=== PATIENT | female | born 1935 | race Caucasian/White ===

== ENCOUNTER 2019-08-09 20:20 | Emergency (ER) | payer MEDICARE, BC ==
--- NOTE | 2019-08-09 20:31 | EDM.PDOC ---
ED HPI GENERAL MEDICAL PROBLEM - General Chief Complaint: Chest Pain Stated Complaint: SOB/CHEST PAIN Time Seen by Provider: 08/09/19 20:30 Source of Information: Reports: Patient History Limitations: Reports: No Limitations - History of Present Illness INITIAL COMMENTS - FREE TEXT/NARRATIVE: 83-year-old female with known Parkinson's disease for the last 3 years states that she got tripped up and fell at home on Tuesday, August 05. She states she landed with her hands or fists on top of her chest on the ground. She managed not to hurt her face or neck. She states over the last 3 days the pain in her chest is gradually intensified particularly along the right sternal border along ribs 5678 and 9. Every breath is painful. She has no pain in her back. She skinned up her left hand on the palmar aspect as well as both knees she had no recent changes in medications. No change in cognitive function. Denies cough or sputum production. Denies hemoptysis. Onset: Sudden Onset Date: 08/04/19 Duration: Day(s):, Constant, Getting Worse Location: Reports: Chest (Right anterior chest wall pain and sternal pain.) Quality: Reports: Ache, Sharp, Stabbing Severity: Moderate (Neuritic component to the pain of another 10 at times) Improves with: Reports: Rest Worsens with: Reports: Movement Context: Reports: Trauma (Fall onto her anterior chest.). Denies: Activity, Exercise (Deep breathing movement lying on her side makes the pain worse.), Lifting, Sick Contact Associated Symptoms: Reports: Other Treatments MANAGER [employer] SERVICES: Reports: Other (see below) (None.) Chest Pain Score (Numeric/FACES): 8 - Related Data Allergies Allergy/AdvReac Type Severity Reaction Status Date / Time No Known Allergies Allergy Verified 10/06/15 04:12 Home Meds: Home Meds Carbidopa/Levodopa [Carbidopa-Levodopa 25-100] 25 - 100 mg PO TID 08/09/19 [ History] Escitalopram [Lexapro] 5 mg PO DAILY 08/09/19 [History] Past Medical History HEENT History: Reports: Hard of Hearing Other HEENT History: wears hearing aids Cardiovascular History: Reports: High Cholesterol Gastrointestinal History: Reports: Chronic Constipation, Diverticulosis Other JAVA DEVELOPER History: partial hysterectomy Musculoskeletal History: Reports: Osteoarthritis Neurological History: Reports: Parkinson's (Diagnosed about 3 years ago.) Dermatologic History: Reports: Psoriasis - Past Surgical History HEENT Surgical History: Reports: Cataract Surgery Musculoskeletal Surgical History: Reports: Hip Replacement, Knee Replacement Social & Family History - Family History HEENT: Reports: Cataract Other HEENT Family History: mother and father Cardiac: Reports: [place] Other Cardiac Family History: father Other Respiratory Family Hisory: father-emphysema GI: Reports: Other (See Below) Other GI Family History: gallbladder: mother and father Musculoskeletal: Reports: Arthritis Other Musculoskeletal Family History: whole family Psychiatric: Reports: Depression Other Psychiatric Family History: sister Endocrine/Metabolic: Reports: Diabetes, type II Other Endocrine/Metabolic Family History: mother Oncologic: Reports: Colon, Pancreatic Other Oncologic Family History: sister-colon. mother-pancreatic - Living Situation & Occupation Living situation: Reports: , with Spouse Occupation: Retired ED ROS GENERAL - Review of Systems Review Of Systems: See Below Constitutional: Reports: Malaise, Fatigue (Likely.). Denies: Fever, Chills HEENT: Reports: Glasses Respiratory: Reports: Shortness of Breath, Pleuritic Chest Pain, Other (Chest trauma). Denies: Wheezing, Cough, Sputum Cardiovascular: Reports: Chest Pain (Right parasternal chest pain along ribs 07/24). Denies: Blood Pressure Problem, Claudication, Dyspnea on Exertion, Edema, Lightheadedness, Orthopnea Endocrine: Reports: Fatigue (Chronically.) GI/Abdominal: Reports: Constipation : Reports: Frequency (And stress components), Incontinence Musculoskeletal: Reports: Neck Pain, Shoulder Pain, Joint Pain (Both knees have been replaced. Has pain in her hips occasional low back pain and neck pain) Skin: Reports: Other (Mild bruising contusions to the right lateral knee palmar aspect of her left hand over the thenar eminence.) Neurological: Reports: Tremors, Difficulty Walking (Kinesia), Other Psychiatric: Reports: No Symptoms. Denies: Hallucinations ED EXAM, GENERAL - Physical Exam Exam: See Below Exam Limited By: No Limitations General Appearance: Alert, WD/WN, Mild Distress, Other (Temperature is 36.4 heart rate was 89 respiratory is 20 BP one 737/65 O2 sats were 96 to 97% on room air.) Eye Exam: Bilateral Eye: Normal Inspection, Periorbital Changes Throat/Mouth: Normal Inspection, Normal Lips, Normal Teeth, Normal Oropharynx Head: Atraumatic, Normocephalic, Other (No evidence of head or facial injuries.) Neck: Limited Range of Motion, Tender Lateral. No: Full Range of Motion, Lymphadenopathy (L), Lymphadenopathy (R), Tender Midline Respiratory/Chest: No Respiratory Distress, Lungs Clear, Normal Breath Sounds, Other (Chest is very tender along the right parasternal area particular ribs 5678 and 9. She feels like there is a lump in her right upper breast but I could not palpate a hematoma or mass. It appears that the underlying rib is causing pain in this area.) Cardiovascular: Normal Peripheral Pulses, Regular Rate, Rhythm, No Edema, No Gallop, No Murmur, No Rub Peripheral Pulses: 2+: Posterior Tibial (L), Posterior Tibial (R), Dorsalis Pedis (L), Dorsalis Pedis (R) GI/Abdominal: Normal Bowel Sounds, Soft, Non-Tender, No Organomegaly, No Abnormal Bruit, No Mass, Pelvis Stable, Other (Previous surgical scars) Extremities: Other (No pain on palpation of the thoracic and lumbar spine. She has very mild) Neurological: Alert, Oriented ( kyphosis of the thoracic spine.), CN II-XII Intact, Normal Cognition, Other (Does exhibit bradykinesia. Mild masked facies. Very little tremor. No cogwheel rigidity identified in upper extremities). No: Normal Gait Psychiatric: Normal Affect, Normal Mood Skin Exam: Warm, Other (Abrasions to the lateral aspect of the right knee and the palmar aspect of her left hand.) Course - Vital Signs Last Recorded V/S: Last Vital Signs Temp 36.4 C 08/09/19 20:33 Pulse 89 08/09/19 20:33 Resp 20 08/09/19 20:33 BP 137/65 08/09/19 20:33 Pulse Ox 96 08/09/19 20:33 - Radiology Interpretation Free Text/Narrative:: 83-year-old female presents to the ED after falling at home 5 days ago landing hard on her chest. She states she managed to get her hands up onto her chest to protect her from the fall. She denies hitting her face head or neck. She states since the injury she has developed increasing right-sided parasternal chest pain with a strong pleuritic component. It is worsened with every breath or cough. Limited mobility due to pain unable to sleep other than flat on her back. As for fractured ribs. Plan she will have CT of the chest without contrast. - Re-Assessments/Exams Free Text/Narrative Re-Assessment/Exam: 08/09/19 21:45: CT chest done without contrast. Small portion of the visualized upper abdominal structures show no abnormalities. No pericardial thickening is identified. Mild to moderate coronary artery calcification is appreciated. Atherosclerotic calcification is noted within the aorta and within the branch vessels. No aneurysm is seen. Mediastinum shows no adenopathy. No hilar abnormalities are identified lungs are clear with no acute parenchymal changes. No pleural effusions are seen no pneumothorax is identified. Bone window settings were reviewed which shows degenerative change within both glenohumeral joints. Scattered degenerative changes noted throughout the entire thoracic spine with bamboo spine changes. No acute osseous findings appreciated suggest a rib fracture or sternal fracture. I discussed the findings with the patient. Advised that she is likely through the worst of it. She is contused her chest wall but no broken bones were identified. He is likely going to have pain for about 10 more days before she is back to normal. She will use Tylenol or Motrin as needed for pain relief. Departure - Departure Time of Disposition: 21:34 Disposition: Home, Self-Care 01 Reason for Transfer *Q: Other Condition: Fair Clinical Impression: Contusion of chest wall with intact skin Instructions: Contusion, [id number] Referrals: Digna Lindsey BOX CUTTER [Primary Care Provider] - Forms: ED Department Discharge Additional Instructions: Evaluation in the emergency room today in regards to injuries to the right anterior chest and sternum as a result of a fall 5 days ago. You believe you got your hands up in front of you to protect your chest from the fall and managed to prevent injuries to your neck head and face. Over the last 4 to 5 days however the pain is gradually increased in the right anterior chest wall and along the sternum. Particular ribs 5,6,7 and 8 are very tender to touch under the breast. CT of the chest was therefore carried out as the bones are very thin at your age and they did not reveal any fractured bones or injury to the sternum itself. You have extensive arthritic change throughout your whole thoracic spine where it is growing together at multiple levels which we called bamboo spine. I would anticipate that today is probably the worst day for the chest wall pain and it should slowly start to ease up and get better over the next 7 days 10 days. Suggest Tylenol or Motrin as needed for chest pain. Sepsis Event Note - Focused Exam Vital Signs: Vital Signs Temp Pulse Resp BP Pulse Ox 08/09/19 20:33 36.4 C 89 20 137/65 96 Date Exam was Performed: 08/09/19 Time Exam was Performed: 21:58
[2019-08-09 20:34] VITALS: BP 137/65; PULSE 89
--- NOTE | 2019-08-09 21:42 | CT ---
CT chest Technique: Multiple axial sections were obtained from above the lung apices inferiorly through the lung bases. Intravenous contrast was not utilized. Comparison: Prior chest CT study of 05/01/14. Findings: Small portion of the visualized upper abdominal structures shows no acute finding. No pericardial thickening is seen. Mild to moderate coronary artery calcification is seen. Atherosclerotic calcification is noted within the aorta and within the branch vessels. No aneurysm is seen. Mediastinum shows no adenopathy. No hilar abnormalities are seen. No axillary adenopathy is seen. Lungs are clear with no acute parenchymal change. No pleural effusions are seen. No pneumothorax is identified. Bone window settings were reviewed which shows degenerative change within both glenohumeral joints. Scattered degenerative change is noted throughout the thoracic spine. No acute osseous finding is appreciated. Impression: 1. Findings as noted above. 2. Nothing acute is appreciated. Diagnostic code #2 This report was dictated in MDT
== END 2019-08-09 21:46 | disposition home or self-care (01) ==
LOC: JD.ED 20:20
DX: S20.211A Contusion of right front wall of thorax, initial encounter (principal); S80.211A Abrasion, right knee, initial encounter; S60.512A Abrasion of left hand, initial encounter; G20 Parkinson's disease; Z79.899 Other long term (current) drug therapy; W19.XXXA Unspecified fall, initial encounter; Y92.009 Unspecified place in unspecified non-institutional (private) residence as the place of occurrence of the external cause
CPT/HCPCS: 71250; 71250-26; 99283-25

== ENCOUNTER 2020-08-14 20:24 | Emergency (ER) | payer MEDICARE, BC ==
[2020-08-14 20:50] VITALS: BP 159/88; PULSE 96
--- NOTE | 2020-08-14 21:47 | EDM.PDOC ---
ED HPI GENERAL MEDICAL PROBLEM - General Chief Complaint: Abdominal Pain Stated Complaint: ABDOMINAL PAIN Time Seen by Provider: 08/14/20 21:41 - History of Present Illness INITIAL COMMENTS - FREE TEXT/NARRATIVE: 84-year-old female presents the emergency room with abdominal pain. This been going on for last couple of days. She has difficulty with bowel movements. She has difficulty with voiding does not hurt but she has a hard time getting things going. She has been having constipation problems for a while now. She has not had any fevers or chills she said no nausea or vomiting. Patient denies any history of heart or breathing problems however she does have Parkinson's. She has had Parkinson's for 5 years but possibly 2 years prior to this. Patient denies any other medical problems. Lower Abdominal Pain Score (Numeric/FACES): 0 - Related Data Allergies Allergy/AdvReac Type Severity Reaction Status Date / Time No Known Allergies Allergy Verified 08/14/20 20:50 Home Meds: Home Meds Carbidopa/Levodopa [Carbidopa-Levodopa 25-100] 25 - 100 mg PO TID 08/09/19 [History] Escitalopram [Lexapro] 5 mg PO DAILY 08/09/19 [History] ClonazePAM [KlonoPIN] 0.5 mg PO DAILY 08/14/20 [History] Past Medical History HEENT History: Reports: Hard of Hearing Other HEENT History: wears hearing aids Cardiovascular History: Reports: High Cholesterol Gastrointestinal History: Reports: Chronic Constipation, Diverticulosis 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 Musculoskeletal History: Reports: Osteoarthritis Neurological History: Reports: Parkinson's Dermatologic History: Reports: Psoriasis - Past Surgical History HEENT Surgical History: Reports: Cataract Surgery GI Surgical History: Reports: Appendectomy, Cholecystectomy, Other (See Below) Other GI Surgeries/Procedures: partial colon resection from diverticulitis Female Surgical History: Reports: Hysterectomy Musculoskeletal Surgical History: Reports: Hip Replacement, Knee Replacement Social & Family History - Family History HEENT: Reports: Cataract Other HEENT Family History: mother and father Cardiac: Reports: [place] Other Cardiac Family History: father Other Respiratory Family Hisory: father-emphysema GI: Reports: Other (See Below) Other GI Family History: gallbladder: mother and father Musculoskeletal: Reports: Arthritis Other Musculoskeletal Family History: whole family Psychiatric: Reports: Depression Other Psychiatric Family History: sister Endocrine/Metabolic: Reports: Diabetes, type II Other Endocrine/Metabolic Family History: mother Oncologic: Reports: Colon, Pancreatic Other Oncologic Family History: sister-colon. mother-pancreatic - Tobacco Use Tobacco Use Status *Q: Never Tobacco User - Caffeine Use Caffeine Use: Reports: Coffee - Recreational Drug Use Recreational Drug Use: No - Living Situation & Occupation Living situation: Reports: , with Spouse Occupation: Retired ED ROS GENERAL - Review of Systems Review Of Systems: See Below Constitutional: Reports: No Symptoms Respiratory: Reports: No Symptoms Cardiovascular: Reports: No Symptoms Endocrine: Reports: No Symptoms GI/Abdominal: Reports: Abdominal Pain, Constipation. Denies: Bloody Stool, Diarrhea, Nausea, Vomiting : Reports: Urgency. Denies: Discharge, Dysuria, Frequency, Pain Musculoskeletal: Reports: No Symptoms Skin: Reports: No Symptoms Psychiatric: Reports: No Symptoms ED EXAM, GENERAL - Physical Exam Exam: See Below Exam Limited By: No Limitations General Appearance: Alert, No Apparent Distress Head: Atraumatic, Normocephalic Neck: Normal Inspection, Supple, Non-Tender, Full Range of Motion Respiratory/Chest: No Respiratory Distress, Lungs Clear, Normal Breath Sounds Cardiovascular: Normal Peripheral Pulses, Regular Rate, Rhythm, No Edema GI/Abdominal: Normal Bowel Sounds, Soft, Other (She has lower abdominal discomfort no rigidity rebound or guarding noted) Back Exam: Normal Inspection. No: CVA Tenderness (L), CVA Tenderness (R) Extremities: Normal Inspection, No Pedal Edema Neurological: Alert, Oriented, Normal Cognition Course - Vital Signs Last Recorded V/S: Last Vital Signs Temp 36.7 C 08/14/20 20:43 Pulse 96 08/14/20 20:43 Resp 16 08/14/20 20:43 BP 159/88 H 08/14/20 20:43 Pulse Ox 94 L 08/14/20 20:43 - Orders/Labs/Meds Orders: Active Orders 24 hr Category Date Time Status CULTURE URINE [MREF] Stat Lab 08/14/20 22:40 Received Labs: Laboratory Tests 08/14/20 08/14/20 08/14/20 Range/Units 22:40 22:47 22:47 WBC 19.27 H (3.98-10.04) K/mm3 RBC 4.64 (3.98-5.22) M/mm3 Hgb 14.5 (11.2-15.7) gm/dl Hct 44.5 (34.1-44.9) % MCV 95.9 H (79.4-94.8) fl MCH 31.3 (25.6-32.2) pg MCHC 32.6 (32.2-35.5) g/dl RDW Std Deviation 47.7 H (36.4-46.3) fL Plt Count 372 H (182-369) K/mm3 MPV 8.9 L (9.4-12.3) fl Neut % (Auto) 81.9 H (34.0-71.1) % Lymph % (Auto) 9.4 L (19.3-51.7) % [place] % (Auto) 8.0 (4.7-12.5) % Eos % (Auto) 0.1 L (0.7-5.8) Baso % (Auto) 0.1 (0.1-1.2) % Neut # (Auto) 15.77 H (1.56-6.13) K/mm3 Lymph # (Auto) 1.82 (1.18-3.74) K/mm3 [place] # (Auto) 1.55 H (0.24-0.36) K/mm3 Eos # (Auto) 0.02 L (0.04-0.36) K/mm3 Baso # (Auto) 0.02 (0.01-0.08) K/mm3 Manual Slide Review Abnormal smear Sodium 138 (136-145) mEq/L Potassium 3.9 (3.5-5.1) mEq/L Chloride 102 (98-107) mEq/L Carbon Dioxide 24 (21-32) mEq/L Anion Gap 15.9 H (5-15) BUN 27 H (7-18) mg/dL Creatinine 0.9 (0.55-1.02) mg/dL Est Cr Clr Drug Dosing TNP Estimated GFR (MDRD) 60 (>60) mL/min BUN/Creatinine Ratio 30.0 H (14-18) Glucose 114 H (70-99) mg/dL Calcium 8.8 (8.5-10.1) mg/dL Total Bilirubin 0.6 (0.2-1.0) mg/dL AST 20 (15-37) U/L ALT 13 L (14-59) U/L Alkaline Phosphatase 60 (46-116) U/L Total Protein 6.9 (6.4-8.2) g/dl Albumin 3.2 L (3.4-5.0) g/dl Globulin 3.7 gm/dL Albumin/Globulin Ratio 0.9 L (1-2) Lipase 67 L (73-393) U/L Urine Color Yellow (Yellow) Urine Appearance Clear (Clear) Urine pH 5.5 (5.0-8.0) Ur Specific [place] > or = 1.030 (1.005-1.030) Urine Protein 1+ H (Negative) Urine Glucose (UA) Negative (Negative) Urine Ketones Negative (Negative) Urine Occult Blood 2+ H (Negative) Urine Nitrite Negative (Negative) Urine Bilirubin Negative (Negative) Urine Urobilinogen 0.2 (0.2-1.0) Ur Leukocyte Esterase Trace H (Negative) U Hyaline Cast (Auto) 5-10 H (0-5) /lpf Urine RBC 10-20 H (0-5) /hpf Urine WBC 20-30 H (0-5) /hpf Ur Squamous Epith Cells 5-10 H (0-5) /hpf Urine Bacteria Few (FEW) /hpf Urine Mucus Few (FEW) /hpf SARS-CoV-2 RNA (JONN) (NEGATIVE) 08/15/20 Range/Units 02:41 WBC (3.98-10.04) K/mm3 RBC (3.98-5.22) M/mm3 Hgb (11.2-15.7) gm/dl Hct (34.1-44.9) % MCV (79.4-94.8) fl MCH (25.6-32.2) pg MCHC (32.2-35.5) g/dl RDW Std Deviation (36.4-46.3) fL Plt Count (182-369) K/mm3 MPV (9.4-12.3) fl Neut % (Auto) (34.0-71.1) % Lymph % (Auto) (19.3-51.7) % [place] % (Auto) (4.7-12.5) % Eos % (Auto) (0.7-5.8) Baso % (Auto) (0.1-1.2) % Neut # (Auto) (1.56-6.13) K/mm3 Lymph # (Auto) (1.18-3.74) K/mm3 [place] # (Auto) (0.24-0.36) K/mm3 Eos # (Auto) (0.04-0.36) K/mm3 Baso # (Auto) (0.01-0.08) K/mm3 Manual Slide Review Sodium (136-145) mEq/L Potassium (3.5-5.1) mEq/L Chloride (98-107) mEq/L Carbon Dioxide (21-32) mEq/L Anion Gap (5-15) BUN (7-18) mg/dL Creatinine (0.55-1.02) mg/dL Est Cr Clr Drug Dosing Estimated GFR (MDRD) (>60) mL/min BUN/Creatinine Ratio (14-18) Glucose (70-99) mg/dL Calcium (8.5-10.1) mg/dL Total Bilirubin (0.2-1.0) mg/dL AST (15-37) U/L ALT (14-59) U/L Alkaline Phosphatase (46-116) U/L Total Protein (6.4-8.2) g/dl Albumin (3.4-5.0) g/dl Globulin gm/dL Albumin/Globulin Ratio (1-2) Lipase (73-393) U/L Urine Color (Yellow) Urine Appearance (Clear) Urine pH (5.0-8.0) Ur Specific [place] (1.005-1.030) Urine Protein (Negative) Urine Glucose (UA) (Negative) Urine Ketones (Negative) Urine Occult Blood (Negative) Urine Nitrite (Negative) Urine Bilirubin (Negative) Urine Urobilinogen (0.2-1.0) Ur Leukocyte Esterase (Negative) U Hyaline Cast (Auto) (0-5) /lpf Urine RBC (0-5) /hpf Urine WBC (0-5) /hpf Ur Squamous Epith Cells (0-5) /hpf Urine Bacteria (FEW) /hpf Urine Mucus (FEW) /hpf SARS-CoV-2 RNA (JONN) Negative (NEGATIVE) Meds: Medications Discontinued Medications Generic Name Dose Route Start Last Admin Trade Name Freq PRN Reason Stop Dose Admin Hydromorphone HCl 0.25 mg 08/14/20 21:55 08/14/20 22:06 Hydromorphone 0.5 Mg/0.5 Ml Syringe IVPUSH 08/14/20 21:56 0.25 mg ONETIME ONE Administration Hydromorphone HCl 0.25 mg 08/15/20 02:32 08/15/20 02:38 Hydromorphone 0.5 Mg/0.5 Ml Syringe IVPUSH 08/15/20 02:33 0.25 mg ONETIME ONE Administration Hydromorphone HCl 0.25 mg 08/15/20 06:25 08/15/20 06:30 Hydromorphone 0.5 Mg/0.5 Ml Syringe IVPUSH 08/15/20 06:26 0.25 mg ONETIME ONE Administration Lactated Ringer's 1,000 mls @ 75 mls/hr 08/14/20 22:00 08/15/20 02:28 Ringers, Lactated IV 125 mls/hr ASDIRECTED EDMUND Infusion Piperacillin Sod/Tazobactam 100 mls @ 200 mls/hr 08/15/20 01:36 08/15/20 01:51 Sod 4.5 gm/ Sodium Chloride IV 08/15/20 02:05 200 mls/hr ONETIME ONE Administration Lactated Ringer's 1,000 mls @ 125 mls/hr 08/15/20 02:00 Ringers, Lactated IV ASDIRECTED EDMUND - Re-Assessments/Exams Free Text/Narrative Re-Assessment/Exam: 08/15/20 19:19 Case was discussed with Dr. Wolff our general surgeon who recommended the patient be sent to [place]. The case was then discussed with Dr. Linda, general surgeon, at [facility] in [place], who recommends the patient be transferred admitted to the hospitalist service and referred to interventional radiology for drainage of this abscess. The case was then discussed with Dr. Somers, hospitalist at [facility] who kindly accepts the patient he accepted the patient at approximately 02:00 [place] time. Departure - Departure Time of Disposition: 02:00 Disposition: DC/Tfer to Acute Hospital 02 Clinical Impression: Intestinal diverticular abscess - Discharge Information Referrals: Digna Lindsey, REGISTERED NURSE AMBULATORY [Primary Care Provider] - Forms: ED Department Discharge Sepsis Event Note (ED) - Evaluation Sepsis Screening Result: No Definite Risk - My Orders Last 24 Hours: My Active Orders 08/14/20 22:40 CULTURE URINE [MREF] Stat - Assessment/Plan Last 24 Hours: My Active Orders 08/14/20 22:40 CULTURE URINE [MREF] Stat
[2020-08-14] MEDS ORDERED: HYDROmorphone 0.5 MG/0.5 ML Syringe IVPUSH ONE (21:55)
[2020-08-14] MEDS ORDERED: Lactated Ringers 1,000 ML IV SCH (22:00)
[2020-08-15] MEDS ORDERED: Piperacillin/Tazobactam 4.5 GM in Sodium Chloride 0.9% 100 ML IV ONE (01:36)
[2020-08-15] MEDS ORDERED: Lactated Ringers 1,000 ML IV SCH (02:00)
[2020-08-15] MEDS ORDERED: HYDROmorphone 0.5 MG/0.5 ML Syringe IVPUSH ONE ×2 (02:32→06:25)
--- NOTE | 2020-08-15 08:16 | CR ---
Abdomen: Supine and upright views of the abdomen. Comparison: Prior abdominal x-ray of 01/03/19. Collection of 3 nodules are seen within the left lower chest as well as within both sides of the abdomen. These are likely incidental and external. Surgical clips are seen from prior cholecystectomy. Right hip prosthesis is noted. Joint space narrowing is noted within the left hip. Scoliosis and degenerative change is noted within the spine. Bowel gas pattern is normal and no free air is seen. Impression: 1. Nothing acute is seen on 2 view abdominal x-ray. 2. Other stable findings as noted above. Diagnostic code #2
--- NOTE | 2020-08-15 08:27 | CT ---
CT abdomen and pelvis Technique: Multiple axial sections were obtained from above the dome of the diaphragm inferiorly through the pubic symphysis. Intravenous and oral contrast was utilized. Delayed images were also obtained through the abdomen and pelvis. Reconstructed coronal and sagittal images were also obtained. Comparison: Prior abdominal x-ray performed earlier on the same day (10:13 PM) and prior CT abdomen and pelvis study of 11/06/08. Findings: Visualized lung bases show mild areas of fibrosis. Nothing acute is appreciated. Heart is slightly enlarged. Liver shows a very small low density finding within the right lobe measuring about 2 mm. Small calcification is noted inferiorly within the periphery of the liver. Both of these findings are most likely benign. Surgical clips are seen from prior cholecystectomy. Spleen size is normal. Adrenal glands show no nodule. No abnormality is appreciated within the visualized pancreas. Kidneys show symmetric contrast enhancement. Very minimal low-density lesion is noted within the right kidney measuring 5 mm which is nonspecific by Hounsfield unit measurements but most likely represents a small cyst. Delayed images show contrast within both ureters and within the bladder. Abdominal aorta shows diffuse atherosclerotic change which continues into the iliac vessels. No aneurysm is seen. No retroperitoneal adenopathy or mesenteric abnormalities are seen. Diffuse diverticuli are seen throughout the colon. There is evidence of prior surgery at the sigmoid region. Air cavity is seen next to the area of surgery measuring about 4.1 cm in size. Minimal inflammatory change is seen and difficult to exclude slight diverticulitis with small perforation causing the air cavity. Artifact is noted within the right hip from prior prosthesis. Bone window settings show diffuse degenerative change throughout the spine including disc space narrowing and vacuum phenomena as well as diffuse degenerative apophyseal change. Degenerative change is also noted within the left hip and within the sacroiliac joints. Scoliosis is also noted. Impression: 1. Findings suspicious for minimal diverticulitis located next to an area of surgery within the sigmoid colon with minimal inflammatory change and 4.1 cm air cavity. 2. Diffuse diverticuli throughout the colon. 3. Other findings as noted above which I feel are most likely incidental. Diagnostic code #3 I agree with preliminary report from [facility] finalized on 08/15/20, 2:04 AM CDT, code 1
== END 2020-08-15 06:40 ==
LOC: JD.ED 20:24
DX: K57.20 Diverticulitis of large intestine with perforation and abscess without bleeding (principal); Z20.822 Contact with and (suspected) exposure to COVID-19
CPT/HCPCS: 36415; 74019; 74177; 80053; 81001; 83690; 85025; 87086; 96365; 96375; 96376; 99285; J1170; J2543; J7120; U0002; 99284

== ENCOUNTER 2020-09-01 14:11 | Emergency (ER) | payer MEDICARE, BC ==
[2020-09-01] MEDS ORDERED: HYDROmorphone 0.5 MG/0.5 ML Syringe IVPUSH ONE ×2 (15:04→17:18)
[2020-09-01] MEDS ORDERED: Sodium Chloride 0.9% 1,000 ML IV STA (15:04)
[2020-09-01] MEDS ORDERED: Ondansetron 4 MG/2 ML SDV IVPUSH ONE (15:04)
[2020-09-01] MEDS ORDERED: Sodium Chloride 0.9% 10 ML Syringe FLUSH ONE (15:22)
[2020-09-01] MEDS ORDERED: Iopamidol 612 MG/ML 100 ML Bottle IVPUSH ONE (15:22)
--- NOTE | 2020-09-01 16:25 | EDM.PDOC ---
ED HPI GENERAL MEDICAL PROBLEM - General Chief Complaint: General Stated Complaint: [facility] Time Seen by Provider: 09/01/20 14:21 Source of Information: Reports: Patient, RN Notes Reviewed History Limitations: Reports: No Limitations - History of Present Illness INITIAL COMMENTS - FREE TEXT/NARRATIVE: Patient is an 85-year-old female presenting to the emergency department with complaints of restlessness, rectal pain, a brief episode of feeling her heart was racing, and increased frequency of urination.. She had a surgery for drainage of a abscess diverticuli on August 14. She had a CLAUDE drain placed at that time. Daughter reports that on Tuesday of this week, the sutures came out of the CLAUDE drain and it stopped draining fluid. Intend that she would irrigate it it would come out from around the tubing. They have been in contact with the interventional radiologist in [place] and they recommended that she come to [place] to be evaluated, however her daughter did not think that she would be able to make it there, therefore she called the ambulance. Patient has had no fever or chills. She is still currently taking Cipro that was prescribed to her on discharge from the hospital. She has 2 tabs left and has been taking it as prescribed. She is not taking anything for pain. Patient and daughter report that over the last 4 days, the pain has increased. She has had no fever, chills, nausea, vomiting, or diarrhea. Denies any chest pain or shortness of breath. She has a follow-up appointment scheduled tomorrow with Dr. Munoz as well as the interventional radiologist, however they are not sure of this doctor's name. Rectal Pain Score (Numeric/FACES): 8 - Related Data Allergies Allergy/AdvReac Type Severity Reaction Status Date / Time No Known Allergies Allergy Verified 08/14/20 20:50 Home Meds: Home Meds Carbidopa/Levodopa [Carbidopa-Levodopa 25-100] 25 - 100 mg PO TID 08/09/19 [History] Escitalopram [Lexapro] 5 mg PO DAILY 08/09/19 [History] ClonazePAM [KlonoPIN] 0.5 mg PO DAILY 08/14/20 [History] Ciprofloxacin HCl [Cipro] 500 mg PO BID 09/01/20 [History] Sennosides [Senokot] 1 tab PO ASDIRECTED PRN 09/01/20 [History] Past Medical History HEENT History: Reports: Hard of Hearing Other HEENT History: wears hearing aids Cardiovascular History: Reports: High Cholesterol Gastrointestinal History: Reports: Chronic Constipation, Diverticulosis Other SALVATIONIST History: partial hysterectomy Musculoskeletal History: Reports: Osteoarthritis Neurological History: Reports: Parkinson's Dermatologic History: Reports: Psoriasis - Infectious Disease History Infectious Disease History: Reports: Measles, Other (See Below) Other Infectious Disease History: khmer measels - Past Surgical History HEENT Surgical History: Reports: Cataract Surgery GI Surgical History: Reports: Appendectomy, Cholecystectomy, Other (See Below) Other GI Surgeries/Procedures: partial colon resection from diverticulitis Female Surgical History: Reports: Hysterectomy Musculoskeletal Surgical History: Reports: Hip Replacement, Knee Replacement Dermatological Surgical History: Reports: Other (See Below) Social & Family History - Family History HEENT: Reports: Cataract Other HEENT Family History: mother and father Cardiac: Reports: NE Other Cardiac Family History: father Other Respiratory Family Hisory: father-emphysema GI: Reports: Other (See Below) Other GI Family History: gallbladder: mother and father Musculoskeletal: Reports: Arthritis Other Musculoskeletal Family History: whole family Psychiatric: Reports: Depression Other Psychiatric Family History: sister Endocrine/Metabolic: Reports: Diabetes, type II Other Endocrine/Metabolic Family History: mother Oncologic: Reports: Colon, Pancreatic Other Oncologic Family History: sister-colon. mother-pancreatic - Tobacco Use Tobacco Use Status *Q: Never Tobacco User - Caffeine Use Caffeine Use: Reports: Coffee - Recreational Drug Use Recreational Drug Use: No - Living Situation & Occupation Living situation: Reports: , with Spouse Occupation: Retired ED ROS GENERAL - Review of Systems Review Of Systems: See Below Constitutional: Reports: Weakness. Denies: Fever, Chills HEENT: Reports: No Symptoms Respiratory: Reports: No Symptoms. Denies: Shortness of Breath, Cough Cardiovascular: Reports: Palpitations. Denies: Chest Pain, Lightheadedness, Syncope Endocrine: Reports: No Symptoms GI/Abdominal: Reports: No Symptoms. Denies: Abdominal Pain, Diarrhea, Nausea, Vomiting : Reports: No Symptoms Musculoskeletal: Reports: No Symptoms Skin: Reports: Other (CLAUDE drain to right lower back) Neurological: Reports: No Symptoms Psychiatric: Reports: No Symptoms Hematologic/Lymphatic: Reports: No Symptoms Immunologic: Reports: No Symptoms ED EXAM, GENERAL - Physical Exam Exam: See Below Exam Limited By: No Limitations General Appearance: Alert, WD/WN, No Apparent Distress Respiratory/Chest: No Respiratory Distress, Lungs Clear, Normal Breath Sounds, No Accessory Muscle Use, Chest Non-Tender Cardiovascular: Normal Peripheral Pulses, Regular Rate, Rhythm, No Edema, No Gallop, No JVD, No Murmur, No Rub GI/Abdominal: Normal Bowel Sounds, Soft, Non-Tender, No Organomegaly, No Distention, No Abnormal Bruit, No Mass Back Exam: Other (CLAUDE drain to the right lower back. No drainage in the bulb. No redness or erythema surrounding the insertion site. Tenderness to palpation of the area surrounding the insertion site.) Neurological: Alert, Oriented, CN II-XII Intact, Normal Cognition, Normal Gait, Normal Reflexes, No Motor/Sensory Deficits Psychiatric: Normal Affect, Normal Mood Skin Exam: Warm, Dry, Intact, Normal Color, No Rash #1 Interpretation EKG Date: 09/01/20 Time: 15:01 Rhythm: NSR Rate (Beats/Min): 105 Carey: Normal P-Wave: Present QRS: Normal ST-T: Normal QT: Normal EKG Interpretation Comments: Sinus tach at 105 1 PVC Q waves inferior leads Mild ST depression V3 through V5 EKG interpreted by Dr. Fede KENNEDY Course - Vital Signs Last Recorded V/S: Last Vital Signs Temp 96.1 F L 09/01/20 18:15 Pulse 94 09/01/20 18:15 Resp 16 09/01/20 18:15 BP 156/76 H 09/01/20 18:15 Pulse Ox 91 L 09/01/20 18:15 - Orders/Labs/Meds Labs: Laboratory Tests 09/01/20 09/01/20 09/01/20 Range/Units 14:45 14:45 14:45 WBC 11.29 H (3.98-10.04) K/mm3 RBC 4.54 (3.98-5.22) M/mm3 Hgb 14.2 (11.2-15.7) gm/dl Hct 42.7 (34.1-44.9) % MCV 94.1 (79.4-94.8) fl MCH 31.3 (25.6-32.2) pg MCHC 33.3 (32.2-35.5) g/dl RDW Std Deviation 45.5 (36.4-46.3) fL Plt Count 487 H D (182-369) K/mm3 MPV 8.2 L (9.4-12.3) fl Neut % (Auto) 71.9 H (34.0-71.1) % Lymph % (Auto) 18.0 L (19.3-51.7) % [place] % (Auto) 7.8 (4.7-12.5) % Eos % (Auto) 1.2 (0.7-5.8) Baso % (Auto) 0.4 (0.1-1.2) % Neut # (Auto) 8.12 H (1.56-6.13) K/mm3 Lymph # (Auto) 2.03 (1.18-3.74) K/mm3 [place] # (Auto) 0.88 H (0.24-0.36) K/mm3 Eos # (Auto) 0.14 (0.04-0.36) K/mm3 Baso # (Auto) 0.04 (0.01-0.08) K/mm3 Manual Slide Review Sodium 139 (136-145) mEq/L Potassium 3.5 (3.5-5.1) mEq/L Chloride 103 (98-107) mEq/L Carbon Dioxide 25 (21-32) mEq/L Anion Gap 14.5 (5-15) BUN 15 (7-18) mg/dL Creatinine 1.0 (0.55-1.02) mg/dL Est Cr Clr Drug Dosing 34.87 mL/min Estimated GFR (MDRD) 53 (>60) mL/min BUN/Creatinine Ratio 15.0 (14-18) Glucose 106 H (70-99) mg/dL Calcium 9.2 (8.5-10.1) mg/dL Total Bilirubin 0.4 (0.2-1.0) mg/dL AST 14 L (15-37) U/L ALT 16 (14-59) U/L Alkaline Phosphatase 60 (46-116) U/L Troponin I < 0.017 (0.00-0.056) ng/mL C-Reactive Protein <0.2 (<1.0) mg/dL Total Protein 7.0 (6.4-8.2) g/dl Albumin 3.2 L (3.4-5.0) g/dl Globulin 3.8 gm/dL Albumin/Globulin Ratio 0.8 L (1-2) Urine Color (Yellow) Urine Appearance (Clear) Urine pH (5.0-8.0) Ur Specific [place] (1.005-1.030) Urine Protein (Negative) Urine Glucose (UA) (Negative) Urine Ketones (Negative) Urine Occult Blood (Negative) Urine Nitrite (Negative) Urine Bilirubin (Negative) Urine Urobilinogen (0.2-1.0) Ur Leukocyte Esterase (Negative) Urine RBC (0-5) /hpf Urine WBC (0-5) /hpf Ur Squamous Epith Cells (0-5) /hpf Urine Bacteria (FEW) /hpf Urine Mucus (FEW) /hpf SARS-CoV-2 RNA (JONN) (NEGATIVE) 09/01/20 09/01/20 Range/Units 15:15 17:15 WBC (3.98-10.04) K/mm3 RBC (3.98-5.22) M/mm3 Hgb (11.2-15.7) gm/dl Hct (34.1-44.9) % MCV (79.4-94.8) fl MCH (25.6-32.2) pg MCHC (32.2-35.5) g/dl RDW Std Deviation (36.4-46.3) fL Plt Count (182-369) K/mm3 MPV (9.4-12.3) fl Neut % (Auto) (34.0-71.1) % Lymph % (Auto) (19.3-51.7) % [place] % (Auto) (4.7-12.5) % Eos % (Auto) (0.7-5.8) Baso % (Auto) (0.1-1.2) % Neut # (Auto) (1.56-6.13) K/mm3 Lymph # (Auto) (1.18-3.74) K/mm3 [place] # (Auto) (0.24-0.36) K/mm3 Eos # (Auto) (0.04-0.36) K/mm3 Baso # (Auto) (0.01-0.08) K/mm3 Manual Slide Review Sodium (136-145) mEq/L Potassium (3.5-5.1) mEq/L Chloride (98-107) mEq/L Carbon Dioxide (21-32) mEq/L Anion Gap (5-15) BUN (7-18) mg/dL Creatinine (0.55-1.02) mg/dL Est Cr Clr Drug Dosing mL/min Estimated GFR (MDRD) (>60) mL/min BUN/Creatinine Ratio (14-18) Glucose (70-99) mg/dL Calcium (8.5-10.1) mg/dL Total Bilirubin (0.2-1.0) mg/dL AST (15-37) U/L ALT (14-59) U/L Alkaline Phosphatase (46-116) U/L Troponin I (0.00-0.056) ng/mL C-Reactive Protein (<1.0) mg/dL Total Protein (6.4-8.2) g/dl Albumin (3.4-5.0) g/dl Globulin gm/dL Albumin/Globulin Ratio (1-2) Urine Color Yellow (Yellow) Urine Appearance Clear (Clear) Urine pH 6.5 (5.0-8.0) Ur Specific [place] 1.010 (1.005-1.030) Urine Protein Negative (Negative) Urine Glucose (UA) Negative (Negative) Urine Ketones Negative (Negative) Urine Occult Blood Trace-intact H (Negative) Urine Nitrite Negative (Negative) Urine Bilirubin Negative (Negative) Urine Urobilinogen 0.2 (0.2-1.0) Ur Leukocyte Esterase Negative (Negative) Urine RBC 5-10 H (0-5) /hpf Urine WBC 0-5 (0-5) /hpf Ur Squamous Epith Cells 0-5 (0-5) /hpf Urine Bacteria Few (FEW) /hpf Urine Mucus Few (FEW) /hpf SARS-CoV-2 RNA (JONN) Negative (NEGATIVE) Meds: Medications Discontinued Medications Generic Name Dose Route Start Last Admin Trade Name Freq PRN Reason Stop Dose Admin Hydromorphone HCl 0.25 mg 09/01/20 15:04 09/01/20 15:38 Hydromorphone 0.5 Mg/0.5 Ml Syringe IVPUSH 09/01/20 15:05 0.25 mg ONETIME ONE Administration Hydromorphone HCl 0.25 mg 09/01/20 17:18 09/01/20 17:28 Hydromorphone 0.5 Mg/0.5 Ml Syringe IVPUSH 09/01/20 17:19 0.25 mg ONETIME ONE Administration Sodium Chloride 1,000 mls @ 100 mls/hr 09/01/20 15:04 09/01/20 15:40 Normal Saline IV 09/02/20 01:03 100 mls/hr NOW STA Administration Iopamidol 100 ml 09/01/20 15:22 09/01/20 15:54 Iopamidol 612 Mg/Ml 100 Ml Bottle IVPUSH 09/01/20 15:23 100 ml ONETIME ONE Administration Ondansetron HCl 4 mg 09/01/20 15:04 09/01/20 15:36 Ondansetron 4 Mg/2 Ml Sdv IVPUSH 09/01/20 15:05 4 mg ONETIME ONE Administration Sodium Chloride 10 ml 09/01/20 15:22 09/01/20 15:55 Sodium Chloride 0.9% 10 Ml Syringe FLUSH 09/01/20 15:23 10 ml ONETIME ONE Administration - Re-Assessments/Exams Free Text/Narrative Re-Assessment/Exam: Patient is an 85-year-old female presenting to the emergency department with complaints of rectal pain as well as weakness, restlessness, frequency of urination, and an episode of palpitations. She does have a CLAUDE drain on her right lower back. There is no signs of infection to this. There is also no drainage in the bulb. I have ordered blood work, urinalysis, CT scan of the abdomen pelvis with IV contrast, NS at 100 mill per hour, Dilaudid 0.25 mg IV, and Zofran 4 mg IV. 09/01/20 1710 Hematology was significant for WBC minimally elevated 11.29. Remainder of blood work and urine are unremarkable. CT scan of the abdomen pelvis shows: 1. Prior surgery to the rectosigmoid junction. 2. Posterior right-sided catheter in this area with a small density measuring 2.5 cm x 1.4 cm off the distal tip of the catheter which could possibly be low- density representing residual abscess or postoperative change. This is difficult to evaluate due to artifact from the right hip prosthesis. 3. Other findings as noted above are felt to be chronic. Case was discussed with the interventional radiologist on-call at [facility], Dr. Montez. He recommended that she be seen tomorrow to have drain possibly replaced. Discussed this with daughter and the patient, and they do not feel that they can take her home tonight due to weakness and pain. They also do not think they bill to safely transport her to [place]. Case was discussed with the hospitalist at [facility], Dr. Hilton. He has accepted her for admission to observation. Patient will be transported by ground ambulance. Departure - Departure Time of Disposition: 17:10 Disposition: DC/Tfer to Acute Hospital 02 Condition: Good Clinical Impression: Intestinal diverticular abscess - Discharge Information Referrals: Digna Lindsey, BUSINESS CONTINUITY PLANNING DIRECTOR [Primary Care Provider] - Forms: ED Department Discharge Sepsis Event Note (ED) - Evaluation Sepsis Screening Result: No Definite Risk
--- NOTE | 2020-09-01 16:35 | CT ---
CT abdomen and pelvis Technique: Multiple axial sections were obtained from above the dome of the diaphragm inferiorly through the pubic symphysis. Intravenous contrast was utilized. No oral contrast has been given. Reconstructed coronal and sagittal images were obtained. Comparison: Prior CT abdomen and pelvis study of 08/14/20. Findings: Visualized lung bases show nothing acute. Liver shows a small peripheral calcification which is stable from prior exam. Liver also shows a very minimal low density area which is stable from prior exam. Spleen size is normal. Adrenal glands show no nodule. Pancreas shows no discrete abnormality. Kidneys show symmetric contrast enhancement. Small low-density finding is seen within the upper right kidney compatible with a small incidental cyst. Surgical clips are seen from prior cholecystectomy. Pancreas shows no discrete abnormality. Abdominal aorta shows atherosclerotic calcification which continues into the iliac vessels. No aneurysm is seen. No retroperitoneal adenopathy or mesenteric abnormalities are seen. Diverticuli scattered throughout the colon are seen with no findings of diverticulitis. There is evidence of surgery near the rectosigmoid junction. There is a catheter being seen which enters posteriorly on the right side. Very small area of low density is seen next to the tip of the catheter measuring about 2.5 cm x 1.4 cm. This area is difficult to evaluate due to artifact from right hip prosthesis. No additional pelvic fluid or other abnormality is appreciated. Bone window settings were reviewed which show diffuse degenerative change within the spine. Degenerative change is also noted within the left hip. Impression: 1. Prior surgery at the rectosigmoid junction. 2. Posterior right-sided catheter in this area with a small density measuring 2.5 cm x 1.4 cm off the distal tip of the catheter which could possibly be low-density representing residual abscess or post operative change. This is difficult to evaluate due to artifact from right hip prosthesis. 3. Other findings as noted above which are felt to be chronic. Diagnostic code #3
[2020-09-01 18:18] VITALS: BP 156/76; PULSE 94
== END 2020-09-01 19:22 ==
LOC: JD.ED 14:11 → SUPCPDRO 14:11 → JD.ED 19:22
DX: K57.80 Diverticulitis of intestine, part unspecified, with perforation and abscess without bleeding (principal); G20 Parkinson's disease; Z79.899 Other long term (current) drug therapy; Z20.822 Contact with and (suspected) exposure to COVID-19
CPT/HCPCS: 36415; 74177; 80053; 81001; 84484; 85025; 86140; 93005; 96374; 96375; 96376; 99285; J1170; J2405; J7030; Q9967; U0002; 93010

== ENCOUNTER 2020-09-15 11:49 | Observation (INO) | payer MEDICARE, BC ==
--- NOTE | 2020-09-15 12:37 | EDM.PDOC ---
ED HPI GENERAL MEDICAL PROBLEM - General Chief Complaint: General Stated Complaint: HIMERGING OUT OF REPTUM Time Seen by Provider: 09/15/20 11:58 Source of Information: Reports: Patient History Limitations: Reports: No Limitations - History of Present Illness INITIAL COMMENTS - FREE TEXT/NARRATIVE: 85-year-old female presents the emergency department with complaints of hemorrha ging from her rectum. Patient has a fairly significant past medical history. In July of this year it was discovered she had an abscess in the distal sigmoid colon. She was sent to [place] for interventional radiology to place a drain. Patient stated in the hospital for short time and was sent home with the drain however the sutures did end up coming out and the drain came out. She was then seen in the emergency department once again with issues regarding painful bowel movements and was again sent to [place] to meet with general surgery and interventional radiology. The patient presents today stating she has not had a bowel movement since which was 4 days ago. She states she has been using Dulcolax suppositories and today she noted bright red blood from her rectum she states that when she was sitting on the toilet straining to have a bowel movement that the blood was just dripping out of her. She does complain of a fair amount of pain noted to her rectum. She denies any abdominal pain. She denies any recent fever, chills, nausea or vomiting. She does admit to having issues with constipation. Again she states she has not had a bowel movement for 4 days and has been straining quite a bit to have 1. Of note, she does have a history of Parkinson's and does take prescription medications for that. Rectal Pain Score (Numeric/FACES): 4 - Related Data Allergies Allergy/AdvReac Type Severity Reaction Status Date / Time No Known Allergies Allergy Verified 09/15/20 12:04 Home Meds: Home Meds Carbidopa/Levodopa [Carbidopa-Levodopa 25-100] 25 - 100 mg PO TID 08/09/19 [History] Escitalopram [Lexapro] 5 mg PO DAILY 08/09/19 [History] ClonazePAM [KlonoPIN] 0.5 mg PO DAILY 08/14/20 [History] Ciprofloxacin HCl [Cipro] 500 mg PO BID 09/01/20 [History] Sennosides [Senokot] 1 tab PO ASDIRECTED PRN 09/01/20 [History] Past Medical History HEENT History: Reports: Hard of Hearing Other HEENT History: wears hearing aids Cardiovascular History: Reports: High Cholesterol Gastrointestinal History: Reports: Chronic Constipation, Diverticulosis Other [employer] History: partial hysterectomy Musculoskeletal History: Reports: Osteoarthritis Neurological History: Reports: Parkinson's Dermatologic History: Reports: Psoriasis - Infectious Disease History Infectious Disease History: Reports: Rubella Other Infectious Disease History: tunisian measels - Past Surgical History HEENT Surgical History: Reports: Cataract Surgery GI Surgical History: Reports: Appendectomy, Cholecystectomy, Other (See Below) Other GI Surgeries/Procedures: partial colon resection from diverticulitis Female Surgical History: Reports: Hysterectomy Musculoskeletal Surgical History: Reports: Hip Replacement, Knee Replacement Dermatological Surgical History: Reports: Other (See Below) Social & Family History - Family History HEENT: Reports: Cataract Other HEENT Family History: mother and father Cardiac: Reports: MO Other Cardiac Family History: father Other Respiratory Family Hisory: father-emphysema GI: Reports: Other (See Below) Other GI Family History: gallbladder: mother and father Musculoskeletal: Reports: Arthritis Other Musculoskeletal Family History: whole family Psychiatric: Reports: Depression Other Psychiatric Family History: sister Endocrine/Metabolic: Reports: Diabetes, type II Other Endocrine/Metabolic Family History: mother Oncologic: Reports: Colon, Pancreatic Other Oncologic Family History: sister-colon. mother-pancreatic - Tobacco Use Tobacco Use Status *Q: Never Tobacco User Second Hand Smoke Exposure: No - Caffeine Use Caffeine Use: Reports: Coffee - Recreational Drug Use Recreational Drug Use: No - Living Situation & Occupation Living situation: Reports: , with Spouse Occupation: Retired ED ROS GENERAL - Review of Systems Review Of Systems: Comprehensive ROS is negative, except as noted in HPI. ED EXAM, GENERAL - Physical Exam Exam: See Below Exam Limited By: No Limitations General Appearance: Alert, WD/WN, Mild Distress Ears: Normal External Exam, Hearing Grossly Normal, Other (Patient does wear hearing aids bilaterally) Nose: Normal Inspection Throat/Mouth: Normal Inspection, Normal Lips, Normal Voice, No Airway Compromise Head: Atraumatic Neck: Normal Inspection, Supple Respiratory/Chest: No Respiratory Distress, Lungs Clear, Normal Breath Sounds, No Accessory Muscle Use, Chest Non-Tender Cardiovascular: Normal Peripheral Pulses, Regular Rate, Rhythm, No Edema, No Murmur Peripheral Pulses: 2+: Radial (L), Radial (R) GI/Abdominal: Normal Bowel Sounds, Soft, Non-Tender, No Distention (Female) Exam: Deferred Rectal (Female) Exam: Decreased Rectal Tone, Heme + Stool, Tenderness Back Exam: Normal Inspection Extremities: Normal Inspection, Normal Range of Motion Neurological: Alert, Oriented, Normal Cognition Psychiatric: Normal Affect, Normal Mood Skin Exam: Warm, Dry, Intact, Normal Color, No Rash Lymphatic: No Adenopathy Course - Vital Signs Text/Narrative:: Upon assessment, the patient denies any abdominal pain however she states she is having cramping due to the 2:00 suppository that she had. She denies any urinary symptoms. She does complain of rectal pain however. Rectal exam was completed and I was going to do additional's exam and check for occult stool however patient does have bright red blood noted in her underwear and when rectal exam was completed glen red blood was noted on exam. It is grossly positive. Patient also had a significant amount of pain with rectal exam. There is a fair amount of stool noted in the rectal vault as well. Patient denies any dizziness or palpitations. I have ordered labs to include a CBC, CMP, and KUB. Patient will likely need a CT of the abdomen and pelvis however we will see what her lab results show. I have ordered for a saline lock to be placed as well. Last Recorded V/S: Last Vital Signs Temp 98.6 F 09/15/20 12:06 Pulse 100 09/15/20 12:06 Resp 16 09/15/20 12:06 BP 146/72 H 09/15/20 12:06 Pulse Ox 92 L 09/15/20 12:06 - Orders/Labs/Meds Orders: Active Orders 24 hr Category Date Time Status Promethazine [Phenergan] 12.5 mg Med 09/15/20 16:10 Ordered Sodium Chloride 0.9% [Normal Saline] 50 ml IV ONETIME Sodium Chloride 0.9% [Saline Flush] Med 09/15/20 12:47 Active 10 ml FLUSH ASDIRECTED PRN Sodium Chloride 0.9% [Saline Flush] Med 09/15/20 12:57 Active 10 ml FLUSH ONETIME PRN Saline Lock Insert [OM.PC] Stat Oth 09/15/20 12:47 Ordered Medication Orders Sodium Chloride (Sodium Chloride 0.9% 10 Ml Syringe) 10 ml FLUSH ASDIRECTED PRN PRN Reason: Keep Vein Open Last Admin: 09/15/20 13:12 Dose: 10 ml Documented by: NATASHA Sodium Chloride (Sodium Chloride 0.9% 10 Ml Syringe) 10 ml FLUSH ONETIME PRN PRN Reason: IV FLUSH Last Admin: 09/15/20 14:17 Dose: 10 ml Documented by: HERMINIA Labs: Laboratory Tests 09/15/20 09/15/20 09/15/20 Range/Units 13:01 13:01 13:01 WBC 10.88 H (3.98-10.04) K/mm3 RBC 4.28 (3.98-5.22) M/mm3 Hgb 13.6 (11.2-15.7) gm/dl Hct 40.4 (34.1-44.9) % MCV 94.4 (79.4-94.8) fl MCH 31.8 (25.6-32.2) pg MCHC 33.7 (32.2-35.5) g/dl RDW Std Deviation 46.3 (36.4-46.3) fL Plt Count 377 H D (182-369) K/mm3 MPV 8.6 L (9.4-12.3) fl Neut % (Auto) 71.6 H (34.0-71.1) % Lymph % (Auto) 17.7 L (19.3-51.7) % Canyon % (Auto) 9.0 (4.7-12.5) % Eos % (Auto) 1.4 (0.7-5.8) Baso % (Auto) 0.3 (0.1-1.2) % Neut # (Auto) 7.70 H (1.56-6.13) K/mm3 Lymph # (Auto) 1.93 (1.18-3.74) K/mm3 Canyon # (Auto) 0.98 H (0.24-0.36) K/mm3 Eos # (Auto) 0.15 (0.04-0.36) K/mm3 Baso # (Auto) 0.03 (0.01-0.08) K/mm3 Manual Slide Review Normal smear PT (9.7-12.0) SECONDS INR APTT (21.7-31.4) SECONDS Sodium 139 (136-145) mEq/L Potassium 3.5 (3.5-5.1) mEq/L Chloride 103 (98-107) mEq/L Carbon Dioxide 25 (21-32) mEq/L Anion Gap 14.5 (5-15) BUN 16 (7-18) mg/dL Creatinine 0.9 (0.55-1.02) mg/dL Est Cr Clr Drug Dosing 38.75 mL/min Estimated GFR (MDRD) 59 (>60) mL/min BUN/Creatinine Ratio 17.8 (14-18) Glucose 104 H (70-99) mg/dL Calcium 9.1 (8.5-10.1) mg/dL Total Bilirubin 0.5 (0.2-1.0) mg/dL AST 15 (15-37) U/L ALT 9 L (14-59) U/L Alkaline Phosphatase 45 L (46-116) U/L C-Reactive Protein (<1.0) mg/dL Total Protein 6.5 (6.4-8.2) g/dl Albumin 3.0 L (3.4-5.0) g/dl Globulin 3.5 gm/dL Albumin/Globulin Ratio 0.9 L (1-2) Blood Type A POSITIVE Gel Antibody Screen Negative 09/15/20 09/15/20 Range/Units 13:01 13:01 WBC (3.98-10.04) K/mm3 RBC (3.98-5.22) M/mm3 Hgb (11.2-15.7) gm/dl Hct (34.1-44.9) % MCV (79.4-94.8) fl MCH (25.6-32.2) pg MCHC (32.2-35.5) g/dl RDW Std Deviation (36.4-46.3) fL Plt Count (182-369) K/mm3 MPV (9.4-12.3) fl Neut % (Auto) (34.0-71.1) % Lymph % (Auto) (19.3-51.7) % Canyon % (Auto) (4.7-12.5) % Eos % (Auto) (0.7-5.8) Baso % (Auto) (0.1-1.2) % Neut # (Auto) (1.56-6.13) K/mm3 Lymph # (Auto) (1.18-3.74) K/mm3 [place] # (Auto) (0.24-0.36) K/mm3 Eos # (Auto) (0.04-0.36) K/mm3 Baso # (Auto) (0.01-0.08) K/mm3 Manual Slide Review PT 11.1 (9.7-12.0) SECONDS INR 1.04 APTT 25.6 (21.7-31.4) SECONDS Sodium (136-145) mEq/L Potassium (3.5-5.1) mEq/L Chloride (98-107) mEq/L Carbon Dioxide (21-32) mEq/L Anion Gap (5-15) BUN (7-18) mg/dL Creatinine (0.55-1.02) mg/dL Est Cr Clr Drug Dosing mL/min Estimated GFR (MDRD) (>60) mL/min BUN/Creatinine Ratio (14-18) Glucose (70-99) mg/dL Calcium (8.5-10.1) mg/dL Total Bilirubin (0.2-1.0) mg/dL AST (15-37) U/L ALT (14-59) U/L Alkaline Phosphatase (46-116) U/L C-Reactive Protein <0.2 (<1.0) mg/dL Total Protein (6.4-8.2) g/dl Albumin (3.4-5.0) g/dl Globulin gm/dL Albumin/Globulin Ratio (1-2) Blood Type Gel Antibody Screen Meds: Medications Generic Name Dose Route Start Last Admin Trade Name Freq PRN Reason Stop Dose Admin Sodium Chloride 10 ml 09/15/20 12:47 09/15/20 13:12 Sodium Chloride 0.9% 10 Ml Syringe FLUSH 10 ml ASDIRECTED PRN Administration Keep Vein Open Sodium Chloride 10 ml 09/15/20 12:57 09/15/20 14:17 Sodium Chloride 0.9% 10 Ml Syringe FLUSH 10 ml ONETIME PRN Administration IV FLUSH Discontinued Medications Generic Name Dose Route Start Last Admin Trade Name Freq PRN Reason Stop Dose Admin Diatrizoate Meglum/Diatrizoate Sod 120 ml 09/15/20 12:57 09/15/20 14:17 Diatrizoate Meglumine/Diatrizoate Sodium 37% 120 Ml Bottle PO 09/15/20 12:58 90 ml ONETIME ONE Administration Hydromorphone HCl 0.5 mg 09/15/20 13:06 09/15/20 13:12 Hydromorphone 0.5 Mg/0.5 Ml Syringe IVPUSH 09/15/20 13:07 0.5 mg ONETIME ONE Administration Hydromorphone HCl 0.5 mg 09/15/20 15:14 09/15/20 15:24 Hydromorphone 0.5 Mg/0.5 Ml Syringe IVPUSH 09/15/20 15:15 0.5 mg ONETIME ONE Administration Iopamidol 100 ml 09/15/20 12:57 09/15/20 14:17 Iopamidol 612 Mg/Ml 100 Ml Bottle IVPUSH 09/15/20 12:58 100 ml ONETIME ONE Administration Metoclopramide HCl 5 mg 09/15/20 13:06 09/15/20 13:12 Metoclopramide 10 Mg/2 Ml Sdv IVPUSH 09/15/20 13:07 5 mg ONETIME ONE Administration Ondansetron HCl 4 mg 09/15/20 15:17 09/15/20 15:24 Ondansetron 4 Mg/2 Ml Sdv IVPUSH 09/15/20 15:18 4 mg ONETIME ONE Administration - Radiology Interpretation Free Text/Narrative:: Nothing acute is appreciated on flatplate of the abdomen, I have ordered for the patient to have a CT of the abdomen pelvis with contrast. - Re-Assessments/Exams Free Text/Narrative Re-Assessment/Exam: 09/15/20 14:16 Hematology reveals a WBC of 10.88, hemoglobin 13.6, hematocrit 40.4, platelet count 377 Coagulation reveals a pro time 11.1, INR 1.04, PTT 25.6 Chemistry reveals a sodium of 139, potassium 3.5, carbon dioxide 25, anion gap 14.5, BUN 16, creatinine 0.9, glucose 104, calcium 9.1, AST 15, ALT 9, alk phos 45, albumin 3.0, C-reactive protein is pending I have ordered for this patient to have a CT of the abdomen and pelvis with contrast 09/15/20 14:35 Radiologist impression supine view of the abdomen: 1. Joint space narrowing is noted in the right hip prosthesis. Scattered to space narrowing and scoliosis is noted within the spine with endplate osteophytes. Surgical hips are seen from prior cholecystectomy. Bowel gas pattern appears within normal limits. 2. Nothing acute is seen. 09/15/20 15:[address] of the abdomen and pelvis: 1. Slight increase stool within portions of the colon. 2. Scattered diverticuli are seen with no findings of diverticulitis. 3. Appendix is not visualized with certainty. Bone window settings were reviewed. Diffuse degenerative change noted throughout the spine. Findings are fairly stable from previous exam. Right hip prosthesis is noted. Degenerative changes noted within the left hip. Degenerative changes also noted within both SI joints. 09/15/20 15:03 CRP is less than 0.2 I am thinking that the patient should be observed in the hospital over the next 24 hours as she is having glen red blood noted per rectum. Nothing acute is appreciated on CT of the abdomen pelvis. I have phoned the surgeon on-call , and he is currently in a procedure. His nurse is going to have him return my phone call as soon as he is done. 09/15/20 16:11 Patient was nauseated and received Zofran 4 mg approximately 30 minutes ago. Nursing staff did assist the patient up to the bedside commode and they stated that she began dry heaving. I have ordered for the patient to receive Phenergan 12.5 mg IV. 09/15/20 16:[address] Wolff on the phone he has agreed to accept the patient under his care. She will be admitted to the floor under observation status. He would likely me to write bridge orders as he still has a full day at the clinic and states it will be a while before he gets over here to see her. Departure - Discharge Information Referrals: Digna [facility] [employer] [Primary Care Provider] - Forms: ED Department Discharge Sepsis Event Note (ED) - Evaluation Sepsis Screening Result: No Definite Risk - Focused Exam Vital Signs: Vital Signs Temp Pulse Resp BP Pulse Ox 09/15/20 12:06 98.6 F 100 16 146/72 H 92 L - My Orders Last 24 Hours: My Active Orders 09/15/20 12:47 Sodium Chloride 0.9% [Saline Flush] 10 ml FLUSH ASDIRECTED PRN Saline Lock Insert [OM.PC] Stat 09/15/20 12:57 Sodium Chloride 0.9% [Saline Flush] 10 ml FLUSH ONETIME PRN 09/15/20 16:10 Promethazine [Phenergan] 12.5 mg Sodium Chloride 0.9% [Normal Saline] 50 ml IV ONETIME - Assessment/Plan Last 24 Hours: My Active Orders 09/15/20 12:47 Sodium Chloride 0.9% [Saline Flush] 10 ml FLUSH ASDIRECTED PRN Saline Lock Insert [OM.PC] Stat 09/15/20 12:57 Sodium Chloride 0.9% [Saline Flush] 10 ml FLUSH ONETIME PRN 09/15/20 16:10 Promethazine [Phenergan] 12.5 mg Sodium Chloride 0.9% [Normal Saline] 50 ml IV ONETIME
[2020-09-15] MEDS ORDERED: Sodium Chloride 0.9% 10 ML Syringe FLUSH PRN ×2 (12:47→12:57)
[2020-09-15] MEDS ORDERED: Diatrizoate Meglumine/Diatrizoate Sodium 37% 120 ML Bottle PO ONE (12:57)
[2020-09-15] MEDS ORDERED: Iopamidol 612 MG/ML 100 ML Bottle IVPUSH ONE (12:57)
[2020-09-15] MEDS ORDERED: HYDROmorphone 0.5 MG/0.5 ML Syringe IVPUSH ONE ×2 (13:06→15:14)
[2020-09-15] MEDS ORDERED: Metoclopramide 10 MG/2 ML SDV IVPUSH ONE (13:06)
--- NOTE | 2020-09-15 14:24 | CR ---
Abdomen: Supine view of the abdomen was obtained. Comparison: Prior abdominal x-ray of 08/14/20. Right hip prosthesis is noted. Joint space narrowing is noted. Scattered disc space narrowing and scoliosis is noted within the spine with endplate osteophytes. Surgical clips are seen from prior cholecystectomy. Bowel gas pattern appears within normal limits. Impression: 1. Chronic findings as noted above. 2. Nothing acute is seen. Diagnostic code #2
--- NOTE | 2020-09-15 14:48 | CT ---
CT abdomen and pelvis Technique: Multiple axial sections were obtained from above the dome of the diaphragm inferiorly through the pubic symphysis. Intravenous and oral contrast were utilized. Delayed images were also obtained through the bladder. Reconstructed coronal and sagittal images were obtained. Comparison: Prior plain film abdominal x-ray performed earlier on the same day (12:[address] PM[address] abdomen and pelvis exam of 09/01/20 is available. Findings: Visualized lung bases show nothing acute. Three small abnormalities are noted within the liver which are believed to be stable. Surgical clips are seen from prior cholecystectomy. Minimal prominence of intrahepatic ducts are seen which are believed to represent change from previous cholecystectomy. Spleen is within normal limits. Adrenal glands show no nodule. Pancreas shows no focal abnormality. Kidneys show symmetric contrast enhancement. No hydronephrosis or discrete mass is seen. Right kidney shows a small cyst measuring about 7 mm. Abdominal aorta shows diffuse atherosclerotic calcification with no aneurysm. Atherosclerotic calcification continues into the iliac vessels. No retroperitoneal adenopathy or mesenteric abnormalities are seen. Focal increased stool is seen within the rectum. Lesser stool is seen within the sigmoid colon and descending colon. Scattered stool within the transverse and right colon is seen. Scattered diverticuli are seen. No inflammatory change is seen to indicate diverticulitis. Contrast is noted on delayed images within the ureters and bladder. Appendix is not visualized with certainty. Bone window settings were reviewed. Diffuse degenerative change noted throughout the spine. Findings are fairly stable from previous exam. Right hip prosthesis is noted. Degenerative change is noted within the left hip. Degenerative change is also noted within both sacroiliac joints. Impression: 1. Slight increased stool within portions of the colon as described above. 2. Scattered diverticuli are seen with no findings of diverticulitis. 3. Other findings as noted above believed to be incidental. Diagnostic code #2
[2020-09-15] MEDS ORDERED: Ondansetron 4 MG/2 ML SDV IVPUSH ONE (15:17)
[2020-09-15] MEDS ORDERED: Promethazine 12.5 MG in Sodium Chloride 0.9% 50 ML IV ONE (16:10)
[2020-09-15] MEDS ORDERED: Sodium Chloride 0.9% 1,000 ML IV SCH (18:00)
[2020-09-15] MEDS ORDERED: Lidocaine 4% Top Soln LTA 4 ML Syringe Kit TOP SCH (19:00)
--- NOTE | 2020-09-15 19:47 | PCM.HP.2 ---
H&P History of Present Illness - General Date of Service: 09/15/20 Admit Problem/Dx: Admission Diagnosis/Problem Admission Diagnosis/Problem Constipation History Limitations: Reports: No Limitations - History of Present Illness Initial Comments - Free Text/Narative: Patient had not had BM for 4 days. She has been trying to have one. Tried suppositories twice to no avail. She tried to strain in the bathroom several times. Then she started to pass red blood per rectum. ALong with anal pain. She decided to come to the ED. Not taking blood thinners. In the ED Hgb is normal CT a/p does not reveal any acute problems. She had sigmoid colectomy remotely. Currently has severe diverticulosis in the lest colon. Onset of Symptoms: Reports: Today Duration of Symptoms: Reports: Hour(s): (4) Location: Reports: Abdomen Quality: Reports: Ache Severity: Moderate Improves with: Reports: None Worsens with: Reports: Movement (bowel movement) Rectal Pain Score (Numeric/FACES): 4 - Related Data Allergies/Adverse Reactions: Allergies Allergy/AdvReac Type Severity Reaction Status Date / Time No Known Allergies Allergy Verified 09/15/20 12:04 Home Medications: Home Meds Carbidopa/Levodopa [Carbidopa-Levodopa 25-100] 25 - 100 mg PO TID 08/09/19 [History] Escitalopram [Lexapro] 5 mg PO DAILY 08/09/19 [History] ClonazePAM [KlonoPIN] 0.5 mg PO DAILY 08/14/20 [History] Ciprofloxacin HCl [Cipro] 500 mg PO BID 09/01/20 [History] Sennosides [Senokot] 1 tab PO ASDIRECTED PRN 09/01/20 [History] Past Medical History HEENT History: Reports: Hard of Hearing Other HEENT History: wears hearing aids Cardiovascular History: Reports: High Cholesterol Gastrointestinal History: Reports: Chronic Constipation, Diverticulosis Other OB/BYN History: partial hysterectomy Musculoskeletal History: Reports: Osteoarthritis Neurological History: Reports: Parkinson's Dermatologic History: Reports: Psoriasis - Infectious Disease History Infectious Disease History: Reports: Rubella Other Infectious Disease History: bel[place]ian measels - Past Surgical History HEENT Surgical History: Reports: Cataract Surgery Cardiovascular Surgical History: Reports: None GI Surgical History: Reports: Appendectomy, Cholecystectomy, Other (See Below) Other GI Surgeries/Procedures: partial colon resection from diverticulitis Female Surgical History: Reports: Hysterectomy Neurological Surgical History: Reports: None Musculoskeletal Surgical History: Reports: Hip Replacement, Knee Replacement Dermatological Surgical History: Reports: Other (See Below) Social & Family History - Family History Family Medical History: No Pertinent Family History HEENT: Reports: Cataract Other HEENT Family History: mother and father Cardiac: Reports: [place] Other Cardiac Family History: father Other Respiratory Family Hisory: father-emphysema GI: Reports: Other (See Below) Other GI Family History: gallbladder: mother and father Musculoskeletal: Reports: Arthritis Other Musculoskeletal Family History: whole family Psychiatric: Reports: Depression Other Psychiatric Family History: sister Endocrine/Metabolic: Reports: Diabetes, type II Other Endocrine/Metabolic Family History: mother Oncologic: Reports: Colon, Pancreatic Other Oncologic Family History: sister-colon. mother-pancreatic - Tobacco Use Tobacco Use Status *Q: Never Tobacco User Second Hand Smoke Exposure: No - Caffeine Use Caffeine Use: Reports: Coffee - Alcohol Use Days Per Week of Alcohol Use: 5 Number of Drinks Per Day: 1 Total Drinks Per Week: 5 Date of Last Drink: 09/13/20 Time of Last Drink: 20:00 - Recreational Drug Use Recreational Drug Use: No - Living Situation & Occupation Living situation: Reports: , with Spouse Occupation: Retired H&P Review of Systems - Review of Systems: Review Of Systems: See Below General: Reports: Night Sweats HEENT: Reports: No Symptoms Pulmonary: Reports: No Symptoms Cardiovascular: Reports: No Symptoms Gastrointestinal: Reports: Hematochezia Genitourinary: Reports: No Symptoms Musculoskeletal: Reports: No Symptoms Skin: Reports: No Symptoms Exam - Exam Exam: See Below - Vital Signs Vital Signs: Last Vital Signs Temp 97.9 F 09/15/20 18:18 Pulse 101 H 09/15/20 18:18 Resp 16 09/15/20 18:18 BP 161/81 H 09/15/20 18:18 Pulse Ox 93 L 09/15/20 18:18 Weight: 76.204 kg - Exam General: Alert, Oriented Lungs: Clear to Auscultation, Normal Respiratory Effort Cardiovascular: Regular Rate, Regular Rhythm, Normal S1, Normal S2 GI/Abdominal Exam: Soft, Non-Tender, No Distention Rectal (Female) Exam: Normal Rectal Tone, Bloody Stool, Hemorrhoids, Rectal Fissure, Tenderness - Patient Data Lab Results Last 24 hrs: Laboratory Results - last 24 hr 09/15/20 09/15/20 09/15/20 Range/Units 13:01 13:01 13:01 WBC 10.88 H (3.98-10.04) K/mm3 RBC 4.28 (3.98-5.22) M/mm3 Hgb 13.6 (11.2-15.7) gm/dl Hct 40.4 (34.1-44.9) % MCV 94.4 (79.4-94.8) fl MCH 31.8 (25.6-32.2) pg MCHC 33.7 (32.2-35.5) g/dl RDW Std Deviation 46.3 (36.4-46.3) fL Plt Count 377 H D (182-369) K/mm3 MPV 8.6 L (9.4-12.3) fl Neut % (Auto) 71.6 H (34.0-71.1) % Lymph % (Auto) 17.7 L (19.3-51.7) % [place] % (Auto) 9.0 (4.7-12.5) % Eos % (Auto) 1.4 (0.7-5.8) Baso % (Auto) 0.3 (0.1-1.2) % Neut # (Auto) 7.70 H (1.56-6.13) K/mm3 Lymph # (Auto) 1.93 (1.18-3.74) K/mm3 [place] # (Auto) 0.98 H (0.24-0.36) K/mm3 Eos # (Auto) 0.15 (0.04-0.36) K/mm3 Baso # (Auto) 0.03 (0.01-0.08) K/mm3 Manual Slide Review Normal smear PT (9.7-12.0) SECONDS INR APTT (21.7-31.4) SECONDS Sodium 139 (136-145) mEq/L Potassium 3.5 (3.5-5.1) mEq/L Chloride 103 (98-107) mEq/L Carbon Dioxide 25 (21-32) mEq/L Anion Gap 14.5 (5-15) BUN 16 (7-18) mg/dL Creatinine 0.9 (0.55-1.02) mg/dL Est Cr Clr Drug Dosing 38.75 mL/min Estimated GFR (MDRD) 59 (>60) mL/min BUN/Creatinine Ratio 17.8 (14-18) Glucose 104 H (70-99) mg/dL Calcium 9.1 (8.5-10.1) mg/dL Total Bilirubin 0.5 (0.2-1.0) mg/dL AST 15 (15-37) U/L ALT 9 L (14-59) U/L Alkaline Phosphatase 45 L (46-116) U/L C-Reactive Protein (<1.0) mg/dL Total Protein 6.5 (6.4-8.2) g/dl Albumin 3.0 L (3.4-5.0) g/dl Globulin 3.5 gm/dL Albumin/Globulin Ratio 0.9 L (1-2) SARS-CoV-2 RNA (JONN) (NEGATIVE) Blood Type A POSITIVE Gel Antibody Screen Negative 09/15/20 09/15/20 09/15/20 Range/Units 13:01 13:01 17:00 WBC (3.98-10.04) K/mm3 RBC (3.98-5.22) M/mm3 Hgb (11.2-15.7) gm/dl Hct (34.1-44.9) % MCV (79.4-94.8) fl MCH (25.6-32.2) pg MCHC (32.2-35.5) g/dl RDW Std Deviation (36.4-46.3) fL Plt Count (182-369) K/mm3 MPV (9.4-12.3) fl Neut % (Auto) (34.0-71.1) % Lymph % (Auto) (19.3-51.7) % [place] % (Auto) (4.7-12.5) % Eos % (Auto) (0.7-5.8) Baso % (Auto) (0.1-1.2) % Neut # (Auto) (1.56-6.13) K/mm3 Lymph # (Auto) (1.18-3.74) K/mm3 [place] # (Auto) (0.24-0.36) K/mm3 Eos # (Auto) (0.04-0.36) K/mm3 Baso # (Auto) (0.01-0.08) K/mm3 Manual Slide Review PT 11.1 (9.7-12.0) SECONDS INR 1.04 APTT 25.6 (21.7-31.4) SECONDS Sodium (136-145) mEq/L Potassium (3.5-5.1) mEq/L Chloride (98-107) mEq/L Carbon Dioxide (21-32) mEq/L Anion Gap (5-15) BUN (7-18) mg/dL Creatinine (0.55-1.02) mg/dL Est Cr Clr Drug Dosing mL/min Estimated GFR (MDRD) (>60) mL/min BUN/Creatinine Ratio (14-18) Glucose (70-99) mg/dL Calcium (8.5-10.1) mg/dL Total Bilirubin (0.2-1.0) mg/dL AST (15-37) U/L ALT (14-59) U/L Alkaline Phosphatase (46-116) U/L C-Reactive Protein <0.2 (<1.0) mg/dL Total Protein (6.4-8.2) g/dl Albumin (3.4-5.0) g/dl Globulin gm/dL Albumin/Globulin Ratio (1-2) SARS-CoV-2 RNA (JONN) Negative (NEGATIVE) Blood Type Gel Antibody Screen Result Diagrams: 09/15/20 13:01 09/15/20 13:01 Sepsis Event Note - Evaluation Sepsis Screening Result: No Definite Risk - Focused Exam Vital Signs: Vital Signs Temp Temp Pulse Pulse Resp BP BP 09/15/20 18:18 97.9 F 101 H 16 161/81 H 09/15/20 18:05 98 16 134/89 09/15/20 12:06 98.6 F 100 16 146/72 H Pulse Ox 09/15/20 18:18 93 L 09/15/20 18:05 98 09/15/20 12:06 92 L Problem List Initiated/Reviewed/Updated: No Orders Last 24hrs: Active Orders 24 hr Category Date Time Status Admission Status [Patient Status] [ADT] Routine ADT 09/15/20 16:16 Active Enema [RC] ASDIRECTED Care 09/15/20 17:52 Active Oxygen Therapy [RC] ASDIRECTED Care 09/15/20 19:10 Active Clear Liquid Diet [DIET] Diet 09/16/20 Breakfast Active CBC WITH AUTO DIFF [HEME] Routine Lab 09/16/20 05:11 Ordered Carbidopa/Levodopa [Sinemet 25-100 mg] Med 09/15/20 21:00 Pending DOSE tab PO TID Ciprofloxacin HCl Med 09/15/20 21:00 Ordered 500 mg PO BID ClonazePAM [KlonoPIN] Med 09/16/20 09:00 Ordered 0.5 mg PO DAILY Escitalopram Med 09/16/20 09:00 Ordered 5 mg PO DAILY Lidocaine 4% Top Soln LTA [LTA 360 Kit Top Soln] Med 09/15/20 19:00 Active 4 ml TOP Q6HR Sodium Chloride 0.9% [Normal Saline] 1,000 ml Med 09/15/20 18:00 Active IV ASDIRECTED Sodium Chloride 0.9% [Saline Flush] Med 09/15/20 12:47 Active 10 ml FLUSH ASDIRECTED PRN Sodium Chloride 0.9% [Saline Flush] Med 09/15/20 12:57 Active 10 ml FLUSH ONETIME PRN Saline Lock Insert [OM.PC] Stat Oth 09/15/20 12:47 Ordered Resuscitation Status Routine Resus Stat 09/15/20 18:55 Ordered Medication Orders Carbidopa/Levodopa (Carbidopa/Levodopa 25-100 Mg Tab) tab PO TID EDMUND Clonazepam (Clonazepam 0.5 Mg Tab) 0.5 mg PO DAILY EDMUND Sodium Chloride (Normal Saline) 1,000 mls @ 50 mls/hr IV ASDIRECTED EDMUND Lidocaine (Lidocaine 4% Top Soln Lta 4 Ml Syringe Kit) 4 ml TOP Q6HR EDMUND Non-Formulary Medication (Ciprofloxacin Hcl) 500 mg PO BID EDMUND Non-Formulary Medication (Escitalopram) 5 mg PO DAILY EDMUND Sodium Chloride (Sodium Chloride 0.9% 10 Ml Syringe) 10 ml FLUSH ASDIRECTED PRN PRN Reason: Keep Vein Open Last Admin: 09/15/20 13:12 Dose: 10 ml Documented by: NATASHA Sodium Chloride (Sodium Chloride 0.9% 10 Ml Syringe) 10 ml FLUSH ONETIME PRN PRN Reason: IV FLUSH Last Admin: 09/15/20 14:17 Dose: 10 ml Documented by: HERMINIA Assessment/Plan Comment:: Patient had anorectal bleeding likely from the hemorrhoids vs fissure. - will admit for observation - topical analgesics - Fleets enemas to help with BMs - clear liquids - slight IVF - OK to have home meds - Mortality Measure Prognosis:: Good
[2020-09-15] MEDS ORDERED: HYDROmorphone 0.5 MG/0.5 ML Syringe IVPUSH PRN (20:09)
[2020-09-15] MEDS ORDERED: Lidocaine 2% Jelly 10 ML Urojet MUCMEM ONE (20:20)
[2020-09-15] MEDS: Polyethylene Glycol 3350 Powder 17 GM Packet PO SCH (20:31)
[2020-09-15] MEDS: CIPROFLOXACIN HCL 500 MG PO SCH (22:20)
[2020-09-16] MEDS: Lidocaine 2% Jelly 5 ML Tube MUCMEM SCH ×2 (02:39→08:16)
[2020-09-16] MEDS ORDERED: Aluminum Hydroxide/Magnesium Hydroxide/Simethicone Susp 30 ML Cup PO PRN (03:22)
[2020-09-16] MEDS: Polyethylene Glycol 3350 Powder 17 GM Packet PO SCH (08:16)
[2020-09-16] MEDS: CIPROFLOXACIN HCL 500 MG PO SCH (08:17)
[2020-09-16] MEDS ORDERED: ClonazePAM 0.5 MG Tab PO SCH (09:00)
[2020-09-16] MEDS ORDERED: Enoxaparin 40 MG/0.4 ML Syringe SUBCUT SCH (09:00)
[2020-09-16] MEDS ORDERED: Carbidopa/Levodopa 25-100 MG Tab PO SCH (09:00)
[2020-09-16] MEDS ORDERED: Carbidopa/Levodopa 25-100 MG Tab **PTOM PO SCH (09:00)
[2020-09-16] MEDS ORDERED: ESCITALOPRAM 5 MG PO SCH (09:00)
[2020-09-16] MEDS: Carbidopa/Levodopa 25-100 MG Tab **PTOM PO SCH ×2 (09:39→13:10)
--- NOTE | 2020-09-16 11:10 | PCM.PN ---
- General Info Date of Service: 09/16/20 Admission Dx/Problem (Free Text): Admission Diagnosis/Problem Admission Diagnosis/Problem Constipation Subjective Update: Patient is doing well. had multiple bowel movements. Her pain is better. She is tolerating diet. Functional Status: Reports: Pain Controlled, Tolerating Diet, Ambulating - Review of Systems General: Reports: No Symptoms HEENT: Reports: No Symptoms Pulmonary: Reports: No Symptoms Cardiovascular: Reports: No Symptoms Gastrointestinal: Reports: No Symptoms Genitourinary: Reports: No Symptoms Musculoskeletal: Reports: No Symptoms Skin: Reports: No Symptoms Neurological: Reports: No Symptoms - Patient Data Vitals - Most Recent: Last Vital Signs Temp 98.1 F 09/16/20 07:21 Pulse 78 09/16/20 07:21 Resp 12 09/16/20 07:21 BP 147/83 H 09/16/20 07:21 Pulse Ox 93 L 09/16/20 08:00 Weight - Most Recent: 75.523 kg I&O - Last 24 Hours: Intake & Output 09/15/20 09/16/20 09/16/20 22:59 06:59 14:59 Intake Total 928 230 Balance 928 230 Lab Results Last 24 Hours: Laboratory Results - last 24 hr 09/15/20 09/15/20 09/15/20 Range/Units 13:01 13:01 13:01 WBC 10.88 H (3.98-10.04) K/mm3 RBC 4.28 (3.98-5.22) M/mm3 Hgb 13.6 (11.2-15.7) gm/dl Hct 40.4 (34.1-44.9) % MCV 94.4 (79.4-94.8) fl MCH 31.8 (25.6-32.2) pg MCHC 33.7 (32.2-35.5) g/dl RDW Std Deviation 46.3 (36.4-46.3) fL Plt Count 377 H D (182-369) K/mm3 MPV 8.6 L (9.4-12.3) fl Neut % (Auto) 71.6 H (34.0-71.1) % Lymph % (Auto) 17.7 L (19.3-51.7) % [place] % (Auto) 9.0 (4.7-12.5) % Eos % (Auto) 1.4 (0.7-5.8) Baso % (Auto) 0.3 (0.1-1.2) % Neut # (Auto) 7.70 H (1.56-6.13) K/mm3 Lymph # (Auto) 1.93 (1.18-3.74) K/mm3 [place] # (Auto) 0.98 H (0.24-0.36) K/mm3 Eos # (Auto) 0.15 (0.04-0.36) K/mm3 Baso # (Auto) 0.03 (0.01-0.08) K/mm3 Manual Slide Review Normal smear PT (9.7-12.0) SECONDS INR APTT (21.7-31.4) SECONDS Sodium 139 (136-145) mEq/L Potassium 3.5 (3.5-5.1) mEq/L Chloride 103 (98-107) mEq/L Carbon Dioxide 25 (21-32) mEq/L Anion Gap 14.5 (5-15) BUN 16 (7-18) mg/dL Creatinine 0.9 (0.55-1.02) mg/dL Est Cr Clr Drug Dosing 38.75 mL/min Estimated GFR (MDRD) 59 (>60) mL/min BUN/Creatinine Ratio 17.8 (14-18) Glucose 104 H (70-99) mg/dL Calcium 9.1 (8.5-10.1) mg/dL Phosphorus (2.6-4.7) mg/dL Magnesium (1.8-2.4) mg/dL Total Bilirubin 0.5 (0.2-1.0) mg/dL AST 15 (15-37) U/L ALT 9 L (14-59) U/L Alkaline Phosphatase 45 L (46-116) U/L C-Reactive Protein (<1.0) mg/dL Total Protein 6.5 (6.4-8.2) g/dl Albumin 3.0 L (3.4-5.0) g/dl Globulin 3.5 gm/dL Albumin/Globulin Ratio 0.9 L (1-2) SARS-CoV-2 RNA (JONN) (NEGATIVE) Blood Type A POSITIVE Gel Antibody Screen Negative 09/15/20 09/15/20 09/15/20 Range/Units 13:01 13:01 17:00 WBC (3.98-10.04) K/mm3 RBC (3.98-5.22) M/mm3 Hgb (11.2-15.7) gm/dl Hct (34.1-44.9) % MCV (79.4-94.8) fl MCH (25.6-32.2) pg MCHC (32.2-35.5) g/dl RDW Std Deviation (36.4-46.3) fL Plt Count (182-369) K/mm3 MPV (9.4-12.3) fl Neut % (Auto) (34.0-71.1) % Lymph % (Auto) (19.3-51.7) % [place] % (Auto) (4.7-12.5) % Eos % (Auto) (0.7-5.8) Baso % (Auto) (0.1-1.2) % Neut # (Auto) (1.56-6.13) K/mm3 Lymph # (Auto) (1.18-3.74) K/mm3 [place] # (Auto) (0.24-0.36) K/mm3 Eos # (Auto) (0.04-0.36) K/mm3 Baso # (Auto) (0.01-0.08) K/mm3 Manual Slide Review PT 11.1 (9.7-12.0) SECONDS INR 1.04 APTT 25.6 (21.7-31.4) SECONDS Sodium (136-145) mEq/L Potassium (3.5-5.1) mEq/L Chloride (98-107) mEq/L Carbon Dioxide (21-32) mEq/L Anion Gap (5-15) BUN (7-18) mg/dL Creatinine (0.55-1.02) mg/dL Est Cr Clr Drug Dosing mL/min Estimated GFR (MDRD) (>60) mL/min BUN/Creatinine Ratio (14-18) Glucose (70-99) mg/dL Calcium (8.5-10.1) mg/dL Phosphorus (2.6-4.7) mg/dL Magnesium (1.8-2.4) mg/dL Total Bilirubin (0.2-1.0) mg/dL AST (15-37) U/L ALT (14-59) U/L Alkaline Phosphatase (46-116) U/L C-Reactive Protein <0.2 (<1.0) mg/dL Total Protein (6.4-8.2) g/dl Albumin (3.4-5.0) g/dl Globulin gm/dL Albumin/Globulin Ratio (1-2) SARS-CoV-2 RNA (JONN) Negative (NEGATIVE) Blood Type Gel Antibody Screen 09/16/20 09/16/20 Range/Units 04:40 04:40 WBC 10.03 (3.98-10.04) K/mm3 RBC 4.05 (3.98-5.22) M/mm3 Hgb 12.7 (11.2-15.7) gm/dl Hct 38.2 (34.1-44.9) % MCV 94.3 (79.4-94.8) fl MCH 31.4 (25.6-32.2) pg MCHC 33.2 (32.2-35.5) g/dl RDW Std Deviation 46.4 H (36.4-46.3) fL Plt Count 290 D (182-369) K/mm3 MPV 8.9 L (9.4-12.3) fl Neut % (Auto) 72.4 H (34.0-71.1) % Lymph % (Auto) 17.9 L (19.3-51.7) % [place] % (Auto) 8.0 (4.7-12.5) % Eos % (Auto) 1.4 (0.7-5.8) Baso % (Auto) 0.3 (0.1-1.2) % Neut # (Auto) 7.26 H (1.56-6.13) K/mm3 Lymph # (Auto) 1.80 (1.18-3.74) K/mm3 [place] # (Auto) 0.80 H (0.24-0.36) K/mm3 Eos # (Auto) 0.14 (0.04-0.36) K/mm3 Baso # (Auto) 0.03 (0.01-0.08) K/mm3 Manual Slide Review Normal smear PT (9.7-12.0) SECONDS INR APTT (21.7-31.4) SECONDS Sodium 140 (136-145) mEq/L Potassium 3.5 (3.5-5.1) mEq/L Chloride 104 (98-107) mEq/L Carbon Dioxide 28 (21-32) mEq/L Anion Gap 11.5 (5-15) BUN 12 (7-18) mg/dL Creatinine 0.8 (0.55-1.02) mg/dL Est Cr Clr Drug Dosing 43.59 mL/min Estimated GFR (MDRD) > 60 (>60) mL/min BUN/Creatinine Ratio 15.0 (14-18) Glucose 109 H (70-99) mg/dL Calcium 8.7 (8.5-10.1) mg/dL Phosphorus 3.4 (2.6-4.7) mg/dL Magnesium 1.8 (1.8-2.4) mg/dL Total Bilirubin (0.2-1.0) mg/dL AST (15-37) U/L ALT (14-59) U/L Alkaline Phosphatase (46-116) U/L C-Reactive Protein (<1.0) mg/dL Total Protein (6.4-8.2) g/dl Albumin (3.4-5.0) g/dl Globulin gm/dL Albumin/Globulin Ratio (1-2) SARS-CoV-2 RNA (JONN) (NEGATIVE) Blood Type Gel Antibody Screen Med Orders - Current: Current Medications Al Hydroxide/Mg Hydroxide (Aluminum Hydroxide/Magnesium Hydroxide/Simethicone Du sp 30 Ml Cup) 30 ml PO Q4H PRN PRN Reason: Heartburn Last Admin: 09/16/20 03:47 Dose: 30 ml Documented by: Carbidopa/Levodopa (Carbidopa/Levodopa 25-100 Mg Tab Ptom) 1 tab PO 0800,1200,1600 [facility] Last Admin: 09/16/20 09:39 Dose: 1 tab Documented by: Clonazepam (Clonazepam 0.5 Mg Tab Ptom) 0.5 mg PO BEDTIME [facility] Enoxaparin Sodium (Enoxaparin 40 Mg/0.4 Ml Syringe) 40 mg SUBCUT DAILY [facility] Last Admin: 09/16/20 08:16 Dose: 40 mg Documented by: Hydromorphone HCl (Hydromorphone 0.5 Mg/0.5 Ml Syringe) 0.5 mg IVPUSH Q4H PRN PRN Reason: Pain Last Admin: 09/15/20 20:31 Dose: 0.5 mg Documented by: Sodium Chloride (Normal Saline) 1,000 mls @ 50 mls/hr IV ASDIRECTED EDMUND Last Admin: 09/15/20 22:35 Dose: 50 mls/hr Documented by: Lidocaine HCl (Lidocaine 2% Jelly 5 Ml Tube) 2 ml MUCMEM Q6H [facility] Last Admin: 09/16/20 08:16 Dose: 5 applic Documented by: Ciprofloxacin Hcl 500 Mg Tablet Own Med 500 mg PO BID [facility] Last Admin: 09/16/20 08:17 Dose: 500 mg Documented by: Escitalopram 5 Mg (Tab Ptom) 0 mg PO DAILY [facility] Last Admin: 09/16/20 09:33 Dose: 5 mg Documented by: Polyethylene Glycol (Polyethylene Glycol 3350 Powder 17 Gm Packet) 17 gm PO DAILY [facility] Last Admin: 09/16/20 08:16 Dose: 17 gm Documented by: Sodium Chloride (Sodium Chloride 0.9% 10 Ml Syringe) 10 ml FLUSH ASDIRECTED PRN PRN Reason: Keep Vein Open Last Admin: 09/15/20 13:12 Dose: 10 ml Documented by: Sodium Chloride (Sodium Chloride 0.9% 10 Ml Syringe) 10 ml FLUSH ONETIME PRN PRN Reason: IV FLUSH Last Admin: 09/15/20 14:17 Dose: 10 ml Documented by: Discontinued Medications Carbidopa/Levodopa (Carbidopa/Levodopa 25-100 Mg Tab) 1.5 tab PO 0800,1200 [facility] Carbidopa/Levodopa (Carbidopa/Levodopa 25-100 Mg Tab Ptom) 1.5 tab PO 0800,1200 [facility] Clonazepam (Clonazepam 0.5 Mg Tab) 0.5 mg PO DAILY [facility] Diatrizoate Meglum/Diatrizoate Sod (Diatrizoate Meglumine/Diatrizoate Sodium 37% 120 Ml Bottle) 120 ml PO ONETIME ONE Stop: 09/15/20 12:58 Last Admin: 09/15/20 14:17 Dose: 90 ml Documented by: Hydromorphone HCl (Hydromorphone 0.5 Mg/0.5 Ml Syringe) 0.5 mg IVPUSH ONETIME ONE Stop: 09/15/20 13:07 Last Admin: 09/15/20 13:12 Dose: 0.5 mg Documented by: Hydromorphone HCl (Hydromorphone 0.5 Mg/0.5 Ml Syringe) 0.5 mg IVPUSH ONETIME ONE Stop: 09/15/20 15:15 Last Admin: 09/15/20 15:24 Dose: 0.5 mg Documented by: Promethazine HCl 12.5 mg/ (Sodium Chloride) 50.5 mls @ 100 mls/hr IV ONETIME ONE Stop: 09/15/20 16:40 Last Admin: 09/15/20 16:40 Dose: 100 mls/hr Documented by: Iopamidol (Iopamidol 612 Mg/Ml 100 Ml Bottle) 100 ml IVPUSH ONETIME ONE Stop: 09/15/20 12:58 Last Admin: 09/15/20 14:17 Dose: 100 ml Documented by: Lidocaine HCl (Lidocaine 2% Jelly 10 Ml Urojet) 10 ml MUCMEM ONETIME ONE Stop: 09/15/20 20:21 Last Admin: 09/15/20 21:18 Dose: 10 ml Documented by: Metoclopramide HCl (Metoclopramide 10 Mg/2 Ml Sdv) 5 mg IVPUSH ONETIME ONE Stop: 09/15/20 13:07 Last Admin: 09/15/20 13:12 Dose: 5 mg Documented by: Ondansetron HCl (Ondansetron 4 Mg/2 Ml Sdv) 4 mg IVPUSH ONETIME ONE Stop: 09/15/20 15:18 Last Admin: 09/15/20 15:24 Dose: 4 mg Documented by: - Exam General: Alert, Oriented, Cooperative Lungs: Clear to Auscultation, Normal Respiratory Effort Cardiovascular: Regular Rate, Regular Rhythm GI/Abdominal Exam: Normal Bowel Sounds, Soft, Non-Tender, No Organomegaly - Patient Data Lab Results Last 24 hrs: Laboratory Results - last 24 hr 09/15/20 09/15/20 09/15/20 Range/Units 13:01 13:01 13:01 WBC 10.88 H (3.98-10.04) K/mm3 RBC 4.28 (3.98-5.22) M/mm3 Hgb 13.6 (11.2-15.7) gm/dl Hct 40.4 (34.1-44.9) % MCV 94.4 (79.4-94.8) fl MCH 31.8 (25.6-32.2) pg MCHC 33.7 (32.2-35.5) g/dl RDW Std Deviation 46.3 (36.4-46.3) fL Plt Count 377 H D (182-369) K/mm3 MPV 8.6 L (9.4-12.3) fl Neut % (Auto) 71.6 H (34.0-71.1) % Lymph % (Auto) 17.7 L (19.3-51.7) % [place] % (Auto) 9.0 (4.7-12.5) % Eos % (Auto) 1.4 (0.7-5.8) Baso % (Auto) 0.3 (0.1-1.2) % Neut # (Auto) 7.70 H (1.56-6.13) K/mm3 Lymph # (Auto) 1.93 (1.18-3.74) K/mm3 [place] # (Auto) 0.98 H (0.24-0.36) K/mm3 Eos # (Auto) 0.15 (0.04-0.36) K/mm3 Baso # (Auto) 0.03 (0.01-0.08) K/mm3 Manual Slide Review Normal smear PT (9.7-12.0) SECONDS INR APTT (21.7-31.4) SECONDS Sodium 139 (136-145) mEq/L Potassium 3.5 (3.5-5.1) mEq/L Chloride 103 (98-107) mEq/L Carbon Dioxide 25 (21-32) mEq/L Anion Gap 14.5 (5-15) BUN 16 (7-18) mg/dL Creatinine 0.9 (0.55-1.02) mg/dL Est Cr Clr Drug Dosing 38.75 mL/min Estimated GFR (MDRD) 59 (>60) mL/min BUN/Creatinine Ratio 17.8 (14-18) Glucose 104 H (70-99) mg/dL Calcium 9.1 (8.5-10.1) mg/dL Phosphorus (2.6-4.7) mg/dL Magnesium (1.8-2.4) mg/dL Total Bilirubin 0.5 (0.2-1.0) mg/dL AST 15 (15-37) U/L ALT 9 L (14-59) U/L Alkaline Phosphatase 45 L (46-116) U/L C-Reactive Protein (<1.0) mg/dL Total Protein 6.5 (6.4-8.2) g/dl Albumin 3.0 L (3.4-5.0) g/dl Globulin 3.5 gm/dL Albumin/Globulin Ratio 0.9 L (1-2) SARS-CoV-2 RNA (JONN) (NEGATIVE) Blood Type A POSITIVE Gel Antibody Screen Negative 09/15/20 09/15/20 09/15/20 Range/Units 13:01 13:01 17:00 WBC (3.98-10.04) K/mm3 RBC (3.98-5.22) M/mm3 Hgb (11.2-15.7) gm/dl Hct (34.1-44.9) % MCV (79.4-94.8) fl MCH (25.6-32.2) pg MCHC (32.2-35.5) g/dl RDW Std Deviation (36.4-46.3) fL Plt Count (182-369) K/mm3 MPV (9.4-12.3) fl Neut % (Auto) (34.0-71.1) % Lymph % (Auto) (19.3-51.7) % [place] % (Auto) (4.7-12.5) % Eos % (Auto) (0.7-5.8) Baso % (Auto) (0.1-1.2) % Neut # (Auto) (1.56-6.13) K/mm3 Lymph # (Auto) (1.18-3.74) K/mm3 [place] # (Auto) (0.24-0.36) K/mm3 Eos # (Auto) (0.04-0.36) K/mm3 Baso # (Auto) (0.01-0.08) K/mm3 Manual Slide Review PT 11.1 (9.7-12.0) SECONDS INR 1.04 APTT 25.6 (21.7-31.4) SECONDS Sodium (136-145) mEq/L Potassium (3.5-5.1) mEq/L Chloride (98-107) mEq/L Carbon Dioxide (21-32) mEq/L Anion Gap (5-15) BUN (7-18) mg/dL Creatinine (0.55-1.02) mg/dL Est Cr Clr Drug Dosing mL/min Estimated GFR (MDRD) (>60) mL/min BUN/Creatinine Ratio (14-18) Glucose (70-99) mg/dL Calcium (8.5-10.1) mg/dL Phosphorus (2.6-4.7) mg/dL Magnesium (1.8-2.4) mg/dL Total Bilirubin (0.2-1.0) mg/dL AST (15-37) U/L ALT (14-59) U/L Alkaline Phosphatase (46-116) U/L C-Reactive Protein <0.2 (<1.0) mg/dL Total Protein (6.4-8.2) g/dl Albumin (3.4-5.0) g/dl Globulin gm/dL Albumin/Globulin Ratio (1-2) SARS-CoV-2 RNA (JONN) Negative (NEGATIVE) Blood Type Gel Antibody Screen 09/16/20 09/16/20 Range/Units 04:40 04:40 WBC 10.03 (3.98-10.04) K/mm3 RBC 4.05 (3.98-5.22) M/mm3 Hgb 12.7 (11.2-15.7) gm/dl Hct 38.2 (34.1-44.9) % MCV 94.3 (79.4-94.8) fl MCH 31.4 (25.6-32.2) pg MCHC 33.2 (32.2-35.5) g/dl RDW Std Deviation 46.4 H (36.4-46.3) fL Plt Count 290 D (182-369) K/mm3 MPV 8.9 L (9.4-12.3) fl Neut % (Auto) 72.4 H (34.0-71.1) % Lymph % (Auto) 17.9 L (19.3-51.7) % [place] % (Auto) 8.0 (4.7-12.5) % Eos % (Auto) 1.4 (0.7-5.8) Baso % (Auto) 0.3 (0.1-1.2) % Neut # (Auto) 7.26 H (1.56-6.13) K/mm3 Lymph # (Auto) 1.80 (1.18-3.74) K/mm3 [place] # (Auto) 0.80 H (0.24-0.36) K/mm3 Eos # (Auto) 0.14 (0.04-0.36) K/mm3 Baso # (Auto) 0.03 (0.01-0.08) K/mm3 Manual Slide Review Normal smear PT (9.7-12.0) SECONDS INR APTT (21.7-31.4) SECONDS Sodium 140 (136-145) mEq/L Potassium 3.5 (3.5-5.1) mEq/L Chloride 104 (98-107) mEq/L Carbon Dioxide 28 (21-32) mEq/L Anion Gap 11.5 (5-15) BUN 12 (7-18) mg/dL Creatinine 0.8 (0.55-1.02) mg/dL Est Cr Clr Drug Dosing 43.59 mL/min Estimated GFR (MDRD) > 60 (>60) mL/min BUN/Creatinine Ratio 15.0 (14-18) Glucose 109 H (70-99) mg/dL Calcium 8.7 (8.5-10.1) mg/dL Phosphorus 3.4 (2.6-4.7) mg/dL Magnesium 1.8 (1.8-2.4) mg/dL Total Bilirubin (0.2-1.0) mg/dL AST (15-37) U/L ALT (14-59) U/L Alkaline Phosphatase (46-116) U/L C-Reactive Protein (<1.0) mg/dL Total Protein (6.4-8.2) g/dl Albumin (3.4-5.0) g/dl Globulin gm/dL Albumin/Globulin Ratio (1-2) SARS-CoV-2 RNA (JONN) (NEGATIVE) Blood Type Gel Antibody Screen Result Diagrams: 09/16/20 04:40 09/16/20 04:40 Sepsis Event Note - Evaluation Sepsis Screening Result: No Definite Risk - Focused Exam Vital Signs: Vital Signs Temp Pulse Resp BP Pulse Ox Pulse Ox Pulse Ox 09/16/20 08:00 93 L 09/16/20 07:21 98.1 F 78 12 147/83 H 94 L 09/16/20 06:40 97.9 F 09/16/20 06:24 94 L 09/16/20 03:12 97.7 F 76 12 128/68 94 L - Problem List Review Problem List Initiated/Reviewed/Updated: No - My Orders Last 24 Hours: My Active Orders 09/15/20 17:52 Enema [RC] 22,09/15/20 18:00 Sodium Chloride 0.9% [Normal Saline] 1,000 ml IV ASDIRECTED 09/15/20 18:55 Resuscitation Status Routine 09/15/20 19:10 Oxygen Therapy [RC] ASDIRECTED 09/15/20 19:52 Up ad Allison [RC] ,09/15/20 19:53 Oxygen Therapy [RC] PRN VTE/DVT Education [RC] , Vital Signs [RC] Q6HR 09/15/20 19:54 Sequential Compression Device [OM.PC] Per Unit Routine 09/15/20 19:55 Antiembolic Devices [RC] ,09/15/20 20:00 polyethylene glycoL 3350 [MiraLAX] 17 gm PO DAILY 09/15/20 20:09 HYDROmorphone [Dilaudid] 0.5 mg IVPUSH Q4H PRN 09/15/20 22:15 Ciprofloxacin HCl 500 mg PO BID 09/16/20 03:00 Lidocaine 2% [Xylocaine 2% Jelly] 2 ml MUCMEM Q6H 09/16/20 03:22 Alum Hydrox/Mag Hydrox/Simeth [Mag-Al Plus] 30 ml PO Q4H PRN 09/16/20 09:00 Enoxaparin [Lovenox] 40 mg SUBCUT DAILY Escitalopram 0 mg PO DAILY 09/16/20 10:00 Carbidopa/Levodopa [Sinemet 25-100 mg] 1 tab PO 0800,1200,1600 09/16/20 Dinner Regular Diet [DIET] 09/16/20 21:00 ClonazePAM [KlonoPIN] 0.5 mg PO BEDTIME 09/17/20 05:11 BASIC METABOLIC PANEL,BMP [CHEM] AM MAGNESIUM [CHEM] AM PHOSPHORUS [CHEM] AM 09/18/20 05:11 BASIC METABOLIC PANEL,BMP [CHEM] AM MAGNESIUM [CHEM] AM PHOSPHORUS [CHEM] AM - Assessment Assessment:: HD1 s/p hematochezia due to hemorrhoidal bleeding. - Plan Plan:: Patient had anorectal bleeding likely from the hemorrhoids vs fissure. - bleeding has resolved - patient had multiple bowel movements after enema - feeling much better - tolerating diet DIspo: home today. Patient will take more fiber - Metamucil, drink more fluids, and take Miralax regularly to minimize constipation
[2020-09-16 13:08] VITALS: BP 137/52; PULSE 89
[2020-09-16] MEDS ORDERED: CLONAZEPAM 0.5 MG PO SCH (21:00)
--- NOTE | 2020-09-17 18:30 | PCM.DCSUM1 ---
Discharge Summary - Hospital Course Free Text/Narrative:: Patient has constipation and had bleeding from hemorrhoids. She was treated with enemas and hemorrhoid cream. Did well. She was discharged in stable condition. SHe will use Miralax, fiber and drink plenty of fluids to avoid recurrent constipation. FOllow up with her PCP. Diagnosis: Stroke: No - Discharge Data Discharge Date: 09/16/20 Discharge Disposition: Home, Self-Care 01 Condition: Good - Referral to Home Health Primary Care Physician: Digna Lindsey NP - Patient Instructions Diet: Heart Healthy Diet Activity: As Tolerated Driving: Do Not Drive (until 24 hrs post anesthesia) Showering/Bathing: July Shower Notify Provider of: Fever, Nausea and/or Vomiting Other/Special Instructions: - Drink plenty of fluids, take fiber such as m etamucil and miralax daily. - Discharge Plan *PRESCRIPTION DRUG MONITORING PROGRAM REVIEWED*: Not Applicable *COPY OF PRESCRIPTION DRUG MONITORING REPORT IN PATIENT MANPREET: Not Applicable Home Medications: Home Meds Carbidopa/Levodopa [Carbidopa-Levodopa 25-100] 1 tab PO TID 08/09/19 [History] Escitalopram [Lexapro] 5 mg PO DAILY 08/09/19 [History] ClonazePAM [KlonoPIN] 0.5 mg PO BEDTIME 08/14/20 [History] Ciprofloxacin HCl [Cipro] 500 mg PO BID 09/01/20 [History] Sennosides [Senokot] 1 tab PO ASDIRECTED PRN 09/01/20 [History] Oxygen Therapy Mode: Room Air Patient Handouts: Constipation, Adult, [id number], Rectal Bleeding, [id number] Forms: ED Department Discharge Referrals: Digna Lindsey NP [Primary Care Provider] - 09/23/20 10:30 am Ethan Wolff MD [Physician] - (follow up with Dr. Wolff only as needed) - Discharge Summary/Plan Comment DC Time >30 min.: Yes - General Info Date of Service: 09/16/20 Admission Dx/Problem (Free Text: Admission Diagnosis/Problem Admission Diagnosis/Problem Constipation Subjective Update: Patient is doing well. had multiple bowel movements. Her pain is better. She is tolerating diet. Functional Status: Reports: Pain Controlled, Tolerating Diet, Ambulating - Review of Systems General: Reports: No Symptoms HEENT: Reports: No Symptoms Pulmonary: Reports: No Symptoms Cardiovascular: Reports: No Symptoms Gastrointestinal: Reports: No Symptoms Genitourinary: Reports: No Symptoms Musculoskeletal: Reports: No Symptoms Skin: Reports: No Symptoms Neurological: Reports: No Symptoms - Patient Data Vitals - Most Recent: Last Vital Signs Temp 98.1 F 09/16/20 12:19 Pulse 89 09/16/20 12:19 Resp 20 09/16/20 12:19 BP 137/52 L 09/16/20 12:19 Pulse Ox 90 L 09/16/20 12:19 Weight - Most Recent: 75.523 kg Med Orders - Current: Current Medications Discontinued Medications Al Hydroxide/Mg Hydroxide (Aluminum Hydroxide/Magnesium Hydroxide/Simethicone Susp 30 Ml Cup) 30 ml PO Q4H PRN PRN Reason: Heartburn Last Admin: 09/16/20 03:47 Dose: 30 ml Documented by: Carbidopa/Levodopa (Carbidopa/Levodopa 25-100 Mg Tab) 1.5 tab PO 0800,1200 [facility] Carbidopa/Levodopa (Carbidopa/Levodopa 25-100 Mg Tab Ptom) 1.5 tab PO 0800,1200 [facility] Last Admin: 09/16/20 11:25 Dose: Not Given Documented by: Carbidopa/Levodopa (Carbidopa/Levodopa 25-100 Mg Tab Ptom) 1 tab PO 0800,1200,1600 [facility] Last Admin: 09/16/20 13:10 Dose: 1 tab Documented by: Clonazepam (Clonazepam 0.5 Mg Tab) 0.5 mg PO DAILY [facility] Last Admin: 09/16/20 11:24 Dose: Not Given Documented by: Clonazepam (Clonazepam 0.5 Mg Tab Ptom) 0.5 mg PO BEDTIME [facility] Diatrizoate Meglum/Diatrizoate Sod (Diatrizoate Meglumine/Diatrizoate Sodium 37% 120 Ml Bottle) 120 ml PO ONETIME ONE Stop: 09/15/20 12:58 Last Admin: 09/15/20 14:17 Dose: 90 ml Documented by: Enoxaparin Sodium (Enoxaparin 40 Mg/0.4 Ml Syringe) 40 mg SUBCUT DAILY [facility] Last Admin: 09/16/20 08:16 Dose: 40 mg Documented by: Hydromorphone HCl (Hydromorphone 0.5 Mg/0.5 Ml Syringe) 0.5 mg IVPUSH ONETIME ONE Stop: 09/15/20 13:07 Last Admin: 09/15/20 13:12 Dose: 0.5 mg Documented by: Hydromorphone HCl (Hydromorphone 0.5 Mg/0.5 Ml Syringe) 0.5 mg IVPUSH ONETIME ONE Stop: 09/15/20 15:15 Last Admin: 09/15/20 15:24 Dose: 0.5 mg Documented by: Hydromorphone HCl (Hydromorphone 0.5 Mg/0.5 Ml Syringe) 0.5 mg IVPUSH Q4H PRN PRN Reason: Pain Last Admin: 09/15/20 20:31 Dose: 0.5 mg Documented by: Promethazine HCl 12.5 mg/ (Sodium Chloride) 50.5 mls @ 100 mls/hr IV ONETIME ONE Stop: 09/15/20 16:40 Last Admin: 09/15/20 16:40 Dose: 100 mls/hr Documented by: Sodium Chloride (Normal Saline) 1,000 mls @ 50 mls/hr IV ASDIRECTED [facility] Last Admin: 09/15/20 22:35 Dose: 50 mls/hr Documented by: Iopamidol (Iopamidol 612 Mg/Ml 100 Ml Bottle) 100 ml IVPUSH ONETIME ONE Stop: 09/15/20 12:58 Last Admin: 09/15/20 14:17 Dose: 100 ml Documented by: Lidocaine HCl (Lidocaine 2% Jelly 10 Ml Urojet) 10 ml MUCMEM ONETIME ONE Stop: 09/15/20 20:21 Last Admin: 09/15/20 21:18 Dose: 10 ml Documented by: Lidocaine HCl (Lidocaine 2% Jelly 5 Ml Tube) 2 ml MUCMEM Q6H [facility] Last Admin: 09/16/20 08:16 Dose: 5 applic Documented by: Metoclopramide HCl (Metoclopramide 10 Mg/2 Ml Sdv) 5 mg IVPUSH ONETIME ONE Stop: 09/15/20 13:07 Last Admin: 09/15/20 13:12 Dose: 5 mg Documented by: Ciprofloxacin Hcl 500 Mg Tablet Own Med 500 mg PO BID [facility] Last Admin: 09/16/20 08:17 Dose: 500 mg Documented by: Escitalopram 5 Mg (Tab Ptom) 0 mg PO DAILY [facility] Last Admin: 09/16/20 09:33 Dose: 5 mg Documented by: Ondansetron HCl (Ondansetron 4 Mg/2 Ml Sdv) 4 mg IVPUSH ONETIME ONE Stop: 09/15/20 15:18 Last Admin: 09/15/20 15:24 Dose: 4 mg Documented by: Polyethylene Glycol (Polyethylene Glycol 3350 Powder 17 Gm Packet) 17 gm PO DAILY [facility] Last Admin: 09/16/20 08:16 Dose: 17 gm Documented by: Sodium Chloride (Sodium Chloride 0.9% 10 Ml Syringe) 10 ml FLUSH ASDIRECTED PRN PRN Reason: Keep Vein Open Last Admin: 09/15/20 13:12 Dose: 10 ml Documented by: Sodium Chloride (Sodium Chloride 0.9% 10 Ml Syringe) 10 ml FLUSH ONETIME PRN PRN Reason: IV FLUSH Last Admin: 09/15/20 14:17 Dose: 10 ml Documented by: - Exam General: Reports: Alert, Oriented, Cooperative Lungs: Reports: Clear to Auscultation, Normal Respiratory Effort Cardiovascular: Reports: Regular Rate, Regular Rhythm, No Murmurs GI/Abdominal Exam: Soft, Non-Tender, No Organomegaly, No Distention
== END 2020-09-16 14:05 | disposition home or self-care (01) ==
LOC: JD.ED 11:49 → JD.MS 16:16
PROVIDERS: ADMIT Surgery; ATTEND Surgery
DX: K59.00 Constipation, unspecified (principal); K64.9 Unspecified hemorrhoids; K57.30 Diverticulosis of large intestine without perforation or abscess without bleeding; E78.00 Pure hypercholesterolemia, unspecified; Z90.49 Acquired absence of other specified parts of digestive tract; Z79.899 Other long term (current) drug therapy; Z98.890 Other specified postprocedural states; Z20.822 Contact with and (suspected) exposure to COVID-19
CPT/HCPCS: 36415; 74018; 74177; 80048; 80053; 83735; 84100; 85025; 85610; 85730; 86140; 86850; 86900; 86901; 94760; 94761; A9270; J1170; J1650; J2405; J2550; J2765; J7030; Q9963; Q9967; U0002

== ENCOUNTER 2022-02-01 06:19 | Day surgery (SDC) | payer MEDICARE, BC ==
[~2022-02-01 06:19] MED LIST: Lactated Ringers 1,000 ML IV SCH; Lidocaine 1%/Sod Bicarbonate in NS 8.4% 1 ML Syringe IDERM PRN; Sodium Chloride 0.9% 10 ML Syringe FLUSH PRN; Sodium Chloride 0.9% 10 ML Syringe FLUSH SCH
[2022-02-01] MEDS ORDERED: EPINEPHrine 1 MG/ML SDV ONE (07:33)
[2022-02-01] MEDS ORDERED: Ropivacaine 0.5% 5 MG/ML 30 ML SDV ONE (07:34)
[2022-02-01] MEDS ORDERED: Lidocaine 1% 2 ML ONE (07:34)
[2022-02-01] MEDS ORDERED: fentaNYL 100 MCG/2 ML SDV ONE ×2 (07:35→10:08)
[2022-02-01] MEDS ORDERED: Dexmedetomidine 200 MCG/2 ML SDV ONE ×2 (07:36→09:44)
[2022-02-01] MEDS: Tranexamic Acid 1,000 MG/10 ML Vial ONE ×2 (08:01→10:30)
[2022-02-01] MEDS: Vancomycin 1 GM SDV ONE ×2 (08:02→10:30)
[2022-02-01] MEDS ORDERED: Propofol 200 MG/20 ML SDV ONE ×4 (08:31→10:30)
[2022-02-01] MEDS ORDERED: HYDROmorphone 0.5 MG/0.5 ML Syringe IVPUSH PRN (09:09)
[2022-02-01] MEDS ORDERED: fentaNYL 100 MCG/2 ML SDV IVPUSH PRN (09:09)
[2022-02-01] MEDS ORDERED: Ondansetron 4 MG/2 ML SDV IVPUSH PRN (09:09)
[2022-02-01] MEDS ORDERED: Dexamethasone 4 MG/ML 5 ML MDV ONE (09:30)
[2022-02-01] MEDS ORDERED: ceFAZolin 2 GM Vial ONE (09:30)
[2022-02-01] MEDS ORDERED: Phenylephrine HCl In 0.9% NaCl 1 MG/10 ML Vial ONE (09:42)
[2022-02-01] MEDS ORDERED: Ondansetron 4 MG/2 ML SDV ONE (09:44)
[2022-02-01 14:39] VITALS: BP 111/57; PULSE 91
== END 2022-02-01 11:00 | disposition home or self-care (01) ==
LOC: JD.SDS 06:19
PROVIDERS: ATTEND Orthopaedic Surgery
DX: M19.012 Primary osteoarthritis, left shoulder (principal); E78.00 Pure hypercholesterolemia, unspecified; Z90.49 Acquired absence of other specified parts of digestive tract; Z90.710 Acquired absence of both cervix and uterus; Z96.642 Presence of left artificial hip joint; Z96.651 Presence of right artificial knee joint; Z79.82 Long term (current) use of aspirin; Z79.899 Other long term (current) drug therapy
CPT/HCPCS: 23472; 73020; 76000; 97166; 97535; C1713; C1769; C1776; J0171; J0690; J1100; J2405; J2704; J2795; J3010; J3370; J7120; 01638; 64415; 76942

== ENCOUNTER 2023-05-12 21:49 | Emergency (ER) | payer MEDICARE, BC ==
[2023-05-12 22:09] VITALS: PULSE 78
[2023-05-12] MEDS ORDERED: Sodium Chloride 0.9% 10 ML Syringe FLUSH PRN (22:21)
[2023-05-12] MEDS: Ketorolac 30 MG/ML SDV IVPUSH ONE (22:42)
[2023-05-12] MEDS: Ondansetron 4 MG/2 ML SDV IVPUSH ONE (22:42)
[2023-05-12 23:03] LABS: BASOPHILS ABSOLUTE AUTO 0.1 K/mm3 (0.0-0.2); BASOPHILS PERCENT AUTO 0.5 % (0.0-1.0); EOSINOPHILS ABSOLUTE AUTO 0.7 K/mm3 (0.0-0.4); EOSINOPHILS PERCENT AUTO 7.1 % (0.0-6.0); HEMATOCRIT 44.7 % (37.0-47.0); HEMOGLOBIN 14.9 gm/dl (12.0-16.0); IMMATURE GRAN ABSOLUTE AUTO 0.03 K/mm3 (0.00-0.05); IMMATURE GRAN PERCENT AUTO 0.3 % (0.0-0.4); LYMPHOCYTES ABSOLUTE AUTO 2.7 K/mm3 (1.0-4.8); LYMPHOCYTES PERCENT AUTO 27.6 % (24.0-44.0); MEAN CORPUSCULAR HGB CONC 33.3 g/dl (32.0-36.0); MEAN CORPUSCULAR VOLUME 93.1 fl (83.0-99.0); MEAN PLATELET VOLUME 8.2 fl (9.4-12.3); MONOCYTES ABSOLUTE AUTO 0.8 K/mm3 (0.0-0.8); MONOCYTES PERCENT AUTO 7.7 % (0.0-8.0); NEUTROPHILS ABSOLUTE AUTO 5.6 K/mm3 (1.8-7.7); NEUTROPHILS PERCENT AUTO 56.8 % (41.0-71.0); PLATELET COUNT,PLT 370 K/mm3 (150-400); WHITE BLOOD CELL COUNT,WBC 9.88 K/mm3 (3.9-11.3)
[2023-05-12 23:35] LABS: A/G RATIO 0.9 (1-2); ALBUMIN 3.4 g/dl (3.4-5.0); ANION GAP 14.2 (5-15); BILIRUBIN TOTAL 0.6 mg/dL (0.2-1.0); BUN/CREATININE RATIO 23.8 (14-18); C-REACTIVE PROTEIN 1.71 mg/dL (<0.30); CALCIUM 9.4 mg/dL (8.5-10.1); CREATININE 0.8 mg/dL (0.55-1.02); EST CRCL DRUG DOSING (CG) 41.97 mL/min; MAGNESIUM 1.8 mg/dL (1.8-2.4); POTASSIUM,K 4.2 mEq/L (3.5-5.1); PROTEIN TOTAL,TP 7.2 g/dl (6.4-8.2); T4 FREE 1.17 ng/dL (0.76-1.46); TSH 3.774 uIU/mL (0.358-3.74)
[2023-05-13] MEDS: Acetaminophen/HYDROcodone 325-5 MG Tab PO ONE (01:06)
[2023-05-13] MEDS: Acetaminophen 325 MG Tab PO ONE (01:07)
[2023-05-13 02:01] LABS: APPEARANCE,URINE CLEAR (Clear); BILIRUBIN,URINE NEGATIVE (Negative); COLOR,URINE YELLOW (Yellow); GLUCOSE,URINE NEGATIVE (Negative); KETONES,URINE NEGATIVE (Negative); LEUKOCYTE ESTERASE,URINE NEGATIVE (Negative); NITRITE,URINE NEGATIVE (Negative); OCCULT BLOOD,URINE TRACE-LYSED (Negative); PROTEIN,URINE NEGATIVE (Negative); UROBILINOGEN,URINE 0.2 (0.2-1.0)
[2023-05-13 02:14] VITALS: BP 165/75
[2023-05-13 03:43] LABS: BACTERIA,URINE RARE /hpf (FEW); EPITHELIAL CELLS,URINE 0-5 /hpf (0-5); RBC,URINE 0-5 /hpf (0-5); WBC,URINE 0-5 /hpf (0-5)
[2023-05-13 03:44] LABS: MUCUS,URINE NOT SEEN /hpf (FEW)
== END 2023-05-13 01:48 | disposition home or self-care (01) ==
LOC: JD.ED 21:49
DX: R51.9 Headache, unspecified (principal); M19.90 Unspecified osteoarthritis, unspecified site; Z79.82 Long term (current) use of aspirin; Z90.49 Acquired absence of other specified parts of digestive tract
CPT/HCPCS: 36415; 70450; 70450-26; 80053; 81001; 83735; 84439; 84443; 85025; 85652; 86140; 96374; 96375; 99284-25; A9270-GY; C1758; J1885; J2405

== ENCOUNTER 2023-11-10 13:04 | Emergency (ER) | payer MEDICARE, BC ==
[2023-11-10] MEDS ORDERED: Naloxone 0.4 MG/ML SDV IVPUSH PRN ×2 (13:52→14:29)
[2023-11-10] MEDS: Metoclopramide 5 MG Tab PO ONE (14:06)
[2023-11-10 14:09] LABS: BASOPHILS ABSOLUTE AUTO 0.1 K/mm3 (0.0-0.2); BASOPHILS PERCENT AUTO 0.5 % (0.0-1.0); EOSINOPHILS ABSOLUTE AUTO 0.2 K/mm3 (0.0-0.4); EOSINOPHILS PERCENT AUTO 2.4 % (0.0-6.0); HEMATOCRIT 43.1 % (37.0-47.0); HEMOGLOBIN 14.6 gm/dl (12.0-16.0); IMMATURE GRAN ABSOLUTE AUTO 0.06 K/mm3 (0.00-0.05); IMMATURE GRAN PERCENT AUTO 0.6 % (0.0-0.4); LYMPHOCYTES ABSOLUTE AUTO 1.6 K/mm3 (1.0-4.8); LYMPHOCYTES PERCENT AUTO 16.1 % (24.0-44.0); MEAN CORPUSCULAR HGB CONC 33.9 g/dl (32.0-36.0); MEAN CORPUSCULAR VOLUME 91.5 fl (83.0-99.0); MEAN PLATELET VOLUME 8.2 fl (9.4-12.3); MONOCYTES ABSOLUTE AUTO 0.6 K/mm3 (0.0-0.8); MONOCYTES PERCENT AUTO 6.4 % (0.0-8.0); NEUTROPHILS ABSOLUTE AUTO 7.2 K/mm3 (1.8-7.7); PLATELET COUNT,PLT 326 K/mm3 (150-400); RED BLOOD CELL COUNT 4.71 M/mm3 (4.10-5.30)
[2023-11-10] MEDS: Metoclopramide 10 MG/2 ML SDV IVPUSH ONE (14:10)
[2023-11-10] MEDS: HYDROmorphone 0.5 MG/0.5 ML Syringe IVPUSH ONE ×2 (14:10→14:48)
[2023-11-10 14:37] LABS: ALBUMIN 3.4 g/dl (3.4-5.0); ANION GAP 11.7 (5-15); BILIRUBIN TOTAL 0.7 mg/dL (0.2-1.0); CALCIUM 9.2 mg/dL (8.5-10.1); EST CRCL DRUG DOSING (CG) 32.93 mL/min; POTASSIUM,K 3.7 mEq/L (3.5-5.1); PROTEIN TOTAL,TP 6.9 g/dl (6.4-8.2)
[2023-11-10] MEDS: Sodium Chloride 0.9% 500 ML IV ONE (15:18)
[2023-11-10 18:56] VITALS: BP 144/66; PULSE 71
== END 2023-11-10 16:30 | disposition home or self-care (01) ==
LOC: JD.ED 13:04
DX: M25.551 Pain in right hip (principal); E78.00 Pure hypercholesterolemia, unspecified; Z79.82 Long term (current) use of aspirin; Z79.899 Other long term (current) drug therapy; Z90.49 Acquired absence of other specified parts of digestive tract; Z90.710 Acquired absence of both cervix and uterus; W19.XXXA Unspecified fall, initial encounter
CPT/HCPCS: 36415; 80053; 85025; 96361; 96374; 96375; 96376; 99283; 99284-25; J1170; J2765; J7030